=== PATIENT | female | born 1995 | race Caucasian/White ===

== ENCOUNTER → 2018-01-22 15:24 | Outpatient (CLI) | payer BC, SELFPAY ==
[2018-01-22 17:30] LABS: Chlamydia Trachomatis by PCR Negative (Negative); Neisserai gonorrhoeae by PCR Negative (Negative); Probe Check PASS; Sample Adequacy Control PASS; Specimen Processing Control PASS
[2018-01-29 18:29] LABS: HPV Reflexed? YES, CHARGE PATIENT
== END ==
PROVIDERS: Visit Provider Obstetrics & Gynecology
DX: Z12.4 Encounter for screening for malignant neoplasm of cervix (principal); Z11.3 Encounter for screening for infections with a predominantly sexual mode of transmission; Z32.01 Encounter for pregnancy test, result positive
CPT/HCPCS: 87491; 87591; 87624; 88175; G0145

== ENCOUNTER → 2018-02-05 14:28 | Outpatient (CLI) | payer BC, SELFPAY ==
[2018-02-05 15:07] LABS: Color, Urine Yellow (Yellow); Glucose, Dipstick Normal (Normal); Ketone-Dipstick Negative (Negative); Leukocyte Esterase-Dipstick Negative /ul (Negative); Nitrite-Dipstick Negative (Negative); Occult Blood-Urine Negative /ul (Negative); Protein-Dipstick Negative (Negative); Urine Bilirubin Dipstick Negative (Negative); Urine Clarity Clear (Clear); Urine Urobilinogen Normal (Normal)
[2018-02-05 15:15] LABS: Absolute Lymphocyte Count 2.03 X10^3/ul (0.83-4.51); Absolute Neutrophil Count 6.4 X10^3/uL (2.0-7.7); Basophil# 0.01 X10^3/uL; Basophil% 0.1 % (0-1); Eosinophil# 0.06 X10^3/uL; Eosinophils% 0.7 % (0-5); Hematocrit 42.9 % (37-47); Hemoglobin 14.6 g/dl (12.0-15.0); Lymphocyte # 2.03 X10^3/ul (4.0); Lymphocyte % 22.2 % (19-41); Mean Corpuscular Hgb 30.5 pg (27.0-32.0); Mean Corpuscular Volume 89.7 fL (81-99); Mean Platelet Vol. 10.9 fl (6.2-12.0); Monocyte# 0.62 X10^3/uL; Monocyte% 6.8 % (0-10); Neutrophil # 6.39 X10^3/uL (2.7-7.7); Platelet Count 239 K/mm3 (150-450); RBC Distribution Width CV 13.6 % (11.6-14.6); RBC Distribution Width SD 44.9 fl (35.1-43.9); Red Blood Count 4.78 M/mm3 (4.2-5.4); White Blood Count 9.1 K/mm3 (4.4-11.0)
[2018-02-05 15:17] LABS: POSITIVE COUNT NO; POSITIVE DIFFERENTIAL NO; POSITIVE MORPHOLOGY NO
[2018-02-05 15:21] LABS: Amphetamine Urine VISTA NEGATIVE (<1000 ng/mL); Barbiturate Urine VISTA NEGATIVE (< 200 ng/mL); Benzodiazepine Urine VISTA NEGATIVE (< 200 ng/mL); Cocaine Urine VISTA NEGATIVE (< 300 ng/mL); Ecstacy Urine VISTA NEGATIVE (< 500 ng/mL); Methadone Urine VISTA NEGATIVE (< 300 ng/mL); PCP Urine VISTA NEGATIVE (< 25 ng/mL); THC Urine VISTA NEGATIVE (< 50 ng/mL); Vista UDS pH Range 6
[2018-02-05 15:46] LABS: Thyroid Stim Hormone (TSH) 0.98 uIU/mL (0.358-3.74)
[2018-02-05 16:25] LABS: HIV - WCH Non-Reactive (Nonreactive); Rubella IgG 53.7 IU/mL
[2018-02-07 02:34] LABS: Prenatal RPR NONREACTIVE (NONREACTIVE)
[2018-02-10 12:52] LABS: HPV HC, High Risk Negative (Negative)
[2018-02-10 12:58] LABS: HEPATITIS B SURFACE AG Negative (Negative); Hep C Antibodies <0.1 s/co ratio (0.0-0.9); V-Zoster IgG (Immunity) 468 index (Immune >165)
== END ==
PROVIDERS: Visit Provider Obstetrics & Gynecology
DX: Z34.82 Encounter for supervision of other normal pregnancy, second trimester (principal); Z12.4 Encounter for screening for malignant neoplasm of cervix
CPT/HCPCS: 36415; 80307; 81002; 84443; 85025; 86703; 86762; 86787; 86803; 87340; 87624

== ENCOUNTER → 2018-05-13 16:55 | Outpatient (CLI) | payer BC, SELFPAY ==
[2018-05-13 17:30] LABS: Hematocrit 38.3 % (37-47); Hemoglobin 12.9 g/dl (12.0-15.0); Mean Corp Hgb Conc 33.7 g/gl (32-36); Mean Corpuscular Hgb 31.1 pg (27.0-32.0); Mean Corpuscular Volume 92.3 fL (81-99); Mean Platelet Vol. 11.2 fl (6.2-12.0); Platelet Count 222 K/mm3 (150-450); RBC Distribution Width CV 13.5 % (11.6-14.6); RBC Distribution Width SD 44.5 fl (35.1-43.9); Red Blood Count 4.15 M/mm3 (4.2-5.4); White Blood Count 12.4 K/mm3 (4.4-11.0)
[2018-05-13 17:34] LABS: Scan Indicated on CBC? Y/N NO
[2018-05-13 17:57] LABS: Glucose Challenge Gest 1H 50g 103 mg/dL (70-140)
== END ==
PROVIDERS: Visit Provider Obstetrics & Gynecology
DX: Z34.83 Encounter for supervision of other normal pregnancy, third trimester (principal)
CPT/HCPCS: 36415; 82950; 85027

== ENCOUNTER 2018-07-06 19:45 | Outpatient (CLI) | payer BC, SELFPAY ==
[2018-07-06 20:32] VITALS: BMI 38.5
[2018-07-06 20:46] LABS: Color, Urine Yellow (Yellow); Glucose, Dipstick Normal (Normal); Ketone-Dipstick Negative (Negative); Leukocyte Esterase-Dipstick Negative /ul (Negative); Nitrite-Dipstick Negative (Negative); Occult Blood-Urine Negative /ul (Negative); Protein-Dipstick 15 mg/dl (Negative); Urine Bilirubin Dipstick Negative (Negative); Urine Clarity Clear (Clear); Urine Urobilinogen 1 mg/dl (Normal)
[2018-07-06 21:07] LABS: Mucous, Urine 0 SEEN /hpf (<or=2+); Red Blood Cells-Urine 0 SEEN /hpf (0-5)
[2018-07-06 21:13] LABS: Color, Urine Yellow (Yellow); Glucose, Dipstick Normal (Normal); Ketone-Dipstick Negative (Negative); Leukocyte Esterase-Dipstick Negative /ul (Negative); Nitrite-Dipstick Negative (Negative); Occult Blood-Urine Negative /ul (Negative); Protein-Dipstick 15 mg/dl (Negative); Urine Bilirubin Dipstick Negative (Negative); Urine Clarity Clear (Clear); Urine Urobilinogen 1 mg/dl (Normal)
[2018-07-06 21:17] LABS: White Blood Cells 0-5 SEEN /hpf (0-5)
[2018-07-06 21:18] LABS: Bacteria RARE /hpf (None Seen); Squamous Epithelial Cells - UA 5-10 SEEN /hpf (5-10)
[2018-07-06 22:20] VITALS: RESP 18
--- NOTE | 2018-07-15 21:22 | OB.TRI.NOTE ---
History of Present Illness Date of Service: 07/06/18 Was patient seen by the physician?: No Reason For Visit: R/O LABOR Date of Service: 07/06/18 Final LOBITO: 08/05/18 Gestational age: 35 Weeks and 5 Days History of Present Illness: 22 yo presents at 35 5/7 wk with CC of cramping Possible labor. Prior 41 wk delivery. Allergies No Known Allergies Allergy (Verified 07/06/18 20:30) Physical Exam Vitals: Vital Signs Resp 18 07/06/18 22:20 NST - FHR Rate Baby A Baseline: 120-130s with accels to 160s Variability:: Moderate Accelerations:: 15 x 15 Decelerations:: None NST Reactive:: Yes, Appropriate for gestational age FHR Category:: Category I Uterine Activity:: no regular UCs noted. Impression/Plan 35 5/57 wk False labor. Home Comfort measures. Keep office appt as planned. Return to Labor and Delivery if inc s/sx of labor.
== END 2018-07-06 22:20 | disposition home or self-care (01) ==
LOC: WPOUT 20:24 → WP 20:26
PROVIDERS: Visit Provider Obstetrics & Gynecology
DX: O47.03 False labor before 37 completed weeks of gestation, third trimester (principal); Z3A.35 35 weeks gestation of pregnancy
CPT/HCPCS: 59025; 59050; 81001; 81002; 99218; G0378

== ENCOUNTER → 2018-07-08 13:30 | Outpatient (CLI) | payer BC, SELFPAY ==
[2018-07-08 17:14] LABS: Group B Strep DNA By PCR Negative (Negative); Internal Control PASS; Probe Check PASS; Specimen Processing Control PASS
== END ==
PROVIDERS: Visit Provider Obstetrics & Gynecology
DX: Z36.85 Encounter for antenatal screening for Streptococcus B (principal)
CPT/HCPCS: 87081; 87653

== ENCOUNTER 2018-07-24 05:40 | Outpatient (CLI) | payer BC, SELFPAY ==
[2018-07-24 06:36] VITALS: BMI 39.9
[2018-07-24] MEDS: Lactated Ringers 1,000 ML 125 ML IV (06:40)
[2018-07-24 07:07] LABS: Red Blood Cells-Urine 0 SEEN /hpf (0-5)
[2018-07-24] MEDS: Ondansetron 4 MG/2 ML Vial IV (07:08)
[2018-07-24] MEDS: Acetaminophen 500 MG Tablet 1000 MG PO (07:08)
[2018-07-24 07:21] LABS: Hematocrit 37.8 % (37-47); Hemoglobin 12.8 g/dl (12.0-15.0); International Normalized Ratio 0.9; Mean Corp Hgb Conc 33.9 g/gl (32-36); Mean Corpuscular Hgb 31.4 pg (27.0-32.0); Mean Corpuscular Volume 92.6 fL (81-99); Platelet Count 175 K/mm3 (150-450); Prothrombin Time (Protime)PT. 12.5 SECONDS (11.7-14.9); RBC Distribution Width CV 14.1 % (11.6-14.6); RBC Distribution Width SD 46.5 fl (35.1-43.9); Red Blood Count 4.08 M/mm3 (4.2-5.4); Scan Indicated on CBC? Y/N NO; White Blood Count 10.7 K/mm3 (4.4-11.0)
[2018-07-24 07:22] LABS: AST(SGOT) 15 U/L (15-37); Alanine Aminotransfer ALT/SGPT 16 U/L (13-56); Creatinine, Serum 0.66 mg/dL (0.55-1.02); EST Glomerular Filtration Rate 119 mL/min (>60); Est Glom Filt Rate - Afr Amer 144 mL/min (>60); Partial Thromboplast Time 27.6 Seconds (24.1-36.2); Uric Acid 6.3 mg/dL (2.6-6.0)
[2018-07-24 07:26] LABS: Color, Urine Yellow (Yellow); Glucose, Dipstick Normal (Normal); Ketone-Dipstick Negative (Negative); Leukocyte Esterase-Dipstick 25 /ul (Negative); Nitrite-Dipstick Negative (Negative); Occult Blood-Urine Negative /ul (Negative); Protein, Urine (Random) 23.9 mg/dL (<11.9); Protein-Dipstick 15 mg/dl (Negative); Protein:Creat Ratio 174 mg/g CRE (0-200); Specific Gravity, Urine 1.015 (1.002-1.030); Urine Bilirubin Dipstick Negative (Negative); Urine Clarity Sl. Cloudy (Clear); Urine Urobilinogen 1 mg/dl (Normal)
[2018-07-24 07:38] LABS: Bacteria 1+ /hpf (None Seen); Mucous, Urine 1+ /hpf (<or=2+); Squamous Epithelial Cells - UA 10-25 SEEN /hpf (5-10); White Blood Cells 0-5 SEEN /hpf (0-5)
--- NOTE | 2018-07-24 08:30 | DCINST_ITS ---
You will use the following diet at home:: No restrictions Your food should be the consistency of: Regular Discharge Activity: Return to Normal Activity, May Drive, May Shower, May Take a Tub Bath Return to work on:: 07/28/18 May shower in (days): 0 Call your doctor if your incision/area has: Sudden Increased Bleeding, Increased Pain/ Swelling Call your doctor if you observe: Fever of 101 or Higher, Inability to urinate, Inability to have a bowel movement, Using more than one pad per hour, Shortness of breath, Chest pain, Calf discomfort, Uncontrolled pain, - - worsening headache or visual changes Allergies/Adverse Reactions: Allergies No Known Allergies Allergy (Verified 07/06/18 20:30) Medications to take at Discharge Vits [Prenatabs FA] 1 tablet PO DAILY 07/06/18 Azithromycin 250 mg PO DAILY 5 Days tab 07/24/18 Guaifenesin 100 mg PO Q4H PRN PRN #200 ml 07/24/18 Pseudoephedrine [Sudafed] 60 mg PO Q8H PRN PRN #20 tab 07/24/18 The following prescriptions were given: Guaifenesin 100 mg PO Q4H PRN PRN #200 ml PRN Reason: Cough Pseudoephedrine [Sudafed] 60 mg PO Q8H PRN PRN #20 tab PRN Reason: Congestion Azithromycin 250 mg PO DAILY 5 Days tab Primary Care Physician: Care Physician,No Primary [Primary Care Provider] - Test Results: Test results from this visit will be discussed in further detail at your follow- up appointment, if applicable. Please Follow Up With: Solo Ovalles MD When: next saturday call for appt Proposed Discharge Date: 07/24/18
--- NOTE | 2018-07-24 08:30 | OB.TRI.NOTE ---
History of Present Illness Date of Service: 07/24/18 Was patient seen by the physician?: Yes Reason For Visit: R/O LABOR Date of Service: 07/24/18 Final LOBITO: 07/28/18 Final LOBITO Source: US <20 weeks Gestational age: 39 Weeks and 3 Days History of Present Illness: Reports some contractions but not strong. Has headache nasal congestion and cough. No signs of SROM or bleeding. Good movement. Allergies No Known Allergies Allergy (Verified 07/06/18 20:30) Laboratory Studies: Laboratory Tests 07/24/18 07/24/18 07/24/18 Range/Units 06:40 06:40 06:40 WBC 10.7 (4.4-11.0) K/mm3 RBC 4.08 L (4.2-5.4) M/mm3 Hgb 12.8 (12.0-15.0) g/dl Hct 37.8 (37-47) % MCV 92.6 (81-99) fL MCH 31.4 (27.0-32.0) pg MCHC 33.9 (32-36) g/gl RDW 14.1 (11.6-14.6) % RDW Differential 46.5 H (35.1-43.9) fl Plt Count 175 (150-450) K/mm3 MPV 13.0 H (6.2-12.0) fl PT 12.5 (11.7-14.9) SECONDS INR 0.9 APTT 27.6 (24.1-36.2) Seconds Creatinine 0.66 (0.55-1.02) mg/dL Estim Creat Clear Calc 110.60 ml/min Est GFR (MDRD) Af Amer 144 (>60) mL/min Est GFR (MDRD) Non-Af 119 (>60) mL/min Uric Acid 6.3 H (2.6-6.0) mg/dL AST 15 (15-37) U/L ALT 16 (13-56) U/L Urine Color (Yellow) Urine Clarity (Clear) Urine pH (5.0 - 8.0) Ur Specific [place] (1.002-1.030) Urine Protein (Negative) mg/dl Urine Glucose (UA) (Normal) mg/dl Urine Ketones (Negative) mg/dl Urine Occult Blood (Negative) /ul Urine Nitrite (Negative) Urine Bilirubin (Negative) mg/dL Urine Urobilinogen (Normal) mg/dl Ur Leukocyte Esterase (Negative) /ul Urine RBC (0-5) /hpf Urine WBC (0-5) /hpf Ur Squamous Epith Cells (5-10) /hpf Urine Bacteria (None Seen) /hpf Urine Mucus (<or=2+) /hpf U Random Total Protein (<11.9) mg/dL Urine Creatinine (NO RANGE EST.) mg/dL Protein/Creatinin Ratio (0-200) mg/g CRE 07/24/18 07/24/18 Range/Units 06:33 06:33 WBC (4.4-11.0) K/mm3 RBC (4.2-5.4) M/mm3 Hgb (12.0-15.0) g/dl Hct (37-47) % MCV (81-99) fL MCH (27.0-32.0) pg MCHC (32-36) g/gl RDW (11.6-14.6) % RDW Differential (35.1-43.9) fl Plt Count (150-450) K/mm3 MPV (6.2-12.0) fl PT (11.7-14.9) SECONDS INR APTT (24.1-36.2) Seconds Creatinine (0.55-1.02) mg/dL Estim Creat Clear Calc ml/min Est GFR (MDRD) Af Amer (>60) mL/min Est GFR (MDRD) Non-Af (>60) mL/min Uric Acid (2.6-6.0) mg/dL AST (15-37) U/L ALT (13-56) U/L Urine Color Yellow (Yellow) Urine Clarity Sl. Cloudy (Clear) Urine pH 7.0 (5.0 - 8.0) Ur Specific [place] 1.015 (1.002-1.030) Urine Protein 15 H (Negative) mg/dl Urine Glucose (UA) Normal (Normal) mg/dl Urine Ketones Negative (Negative) mg/dl Urine Occult Blood Negative (Negative) /ul Urine Nitrite Negative (Negative) Urine Bilirubin Negative (Negative) mg/dL Urine Urobilinogen 1 H (Normal) mg/dl Ur Leukocyte Esterase 25 H (Negative) /ul Urine RBC 0 SEEN (0-5) /hpf Urine WBC 0-5 SEEN (0-5) /hpf Ur Squamous Epith Cells 10-25 SEEN (5-10) /hpf Urine Bacteria 1+ (None Seen) /hpf Urine Mucus 1+ (<or=2+) /hpf U Random Total Protein 23.9 H (<11.9) mg/dL Urine Creatinine 137.00 (NO RANGE EST.) mg/dL Protein/Creatinin Ratio 174 (0-200) mg/g CRE Physical Exam General: Alert, Oriented x3, Cooperative, No apparent distress Cardiovascular: Regular rate, Regular Rhythm Lungs: Clear to auscultation, Normal air movement Abdomen: Soft, Non Tender, Non-Distended, Gravid, Appropriate for Gestational Age Neurological: Neuro grossly intact [employer] ARCHITECT: Normal external genitalia Estimated gestational size: Appropriate for gestational size Presentation: Cephalic Cervix Dilation (cm): 3 Station: -2 Effacement (%): 25 NST - FHR Rate Baby A Baseline: 120s Variability:: Moderate Accelerations:: 15 x 15 Decelerations:: None NST Reactive:: Yes, Appropriate for gestational age FHR Category:: Category I Uterine Activity:: irregular and rare Impression/Plan PIH labs only significant for elevated uric acid. BPs normal here. Headache frontal and likely a result of congestion. Has cough. Prescriptions given for cough suppresant and decongestant. Azithromycin as precaution against bronchitis. Warning given.
== END 2018-07-24 08:35 | disposition home or self-care (01) ==
LOC: WPOUT 05:54 → WP 05:55
PROVIDERS: Visit Provider Obstetrics & Gynecology
DX: O26.893 Other specified pregnancy related conditions, third trimester (principal); R51 Headache; R05 Cough; R09.81 Nasal congestion; Z3A.39 39 weeks gestation of pregnancy
CPT/HCPCS: 36415; 59025; 59050; 81001; 82565; 82570; 84156; 84450; 84460; 84550; 85027; 85610; 85730; 87086; 87088; 99218; J7120; G0378; J2405

== ENCOUNTER 2018-07-28 15:20 | Outpatient (CLI) | payer BC, SELFPAY ==
[2018-07-28 15:59] VITALS: BMI 40.0
[2018-07-28 16:21] LABS: ROM Internal Control Test YES-OK TO RESULT pt. (Internal QC); ROM Patient Test Negative (Negative)
--- NOTE | 2018-07-28 20:59 | OB.TRI.NOTE ---
History of Present Illness Date of Service: 07/28/18 Was patient seen by the physician?: No Reason For Visit: RULE OUT SROM Date of Service: 07/28/18 Final LOBTIO: 08/05/18 Final LOBITO Source: US <20 weeks Gestational age: 38 Weeks and 6 Days History of Present Illness: 38+ week intrauterine 2 para 1 presents with some leaking of fluid. Concerned about rupture of membranes. Minimal contractions have been noted. care remarkable for chronic hypertension on labetalol. Allergies No Known Allergies Allergy (Verified 07/28/18 15:59) Laboratory Studies: Laboratory Tests 07/28/18 Range/Units 15:40 Vag Amniotic Fld Detect Negative (Negative) NST - FHR Rate Baby A NST Reactive:: Yes FHR Category:: Category I Impression/Plan 38+ week intrauterine with possible spontaneous rupture of membranes and negative ROM test. Reactive nonstress test. Minimal contractions noted on monitor or felt by patient. Will release to home with routine instructions and follow-up. Blood pressures okay on labor and delivery this evening.
--- NOTE | 2018-07-28 21:02 | OB.TRI.HP_ITS ---
History of Present Illness Date of Service: 07/28/18 Was patient seen by the physician?: No Reason For Visit: RULE OUT SROM Date of Service: 07/28/18 Final LOBITO: 08/05/18 Final LOBITO Source: US <20 weeks Gestational age: 38 Weeks and 6 Days History of Present Illness: 38+ week intrauterine 2 para 1 presents with some leaking of fluid. Concerned about rupture of membranes. Minimal contractions have been noted. care remarkable for chronic hypertension on labetalol. Allergies No Known Allergies Allergy (Verified 07/28/18 15:59) Laboratory Studies: Laboratory Tests 07/28/18 Range/Units 15:40 Vag Amniotic Fld Detect Negative (Negative) NST - FHR Rate Baby A NST Reactive:: Yes FHR Category:: Category I Impression/Plan 38+ week intrauterine with possible spontaneous rupture of membranes and negative ROM test. Reactive nonstress test. Minimal contractions noted on monitor or felt by patient. Will release to home with routine instructions and follow-up. Blood pressures okay on labor and delivery this evening.
== END 2018-07-28 16:45 | disposition home or self-care (01) ==
LOC: WPOUT 15:44 → WP 15:45
PROVIDERS: Referring Provider Obstetrics & Gynecology; Visit Provider Obstetrics & Gynecology
DX: O16.3 Unspecified maternal hypertension, third trimester (principal); Z3A.38 38 weeks gestation of pregnancy
CPT/HCPCS: 59025; 59050; 84112; 99218; G0378

== ENCOUNTER → 2018-12-08 13:27 | Outpatient (CLI) | payer BC, MEDICAID, SELFPAY ==
[2018-12-08 18:33] LABS: Chlamydia Trachomatis by PCR POSITIVE (Negative); Neisserai gonorrhoeae by PCR Negative (Negative); Probe Check PASS; Sample Adequacy Control PASS; Specimen Processing Control PASS
[2018-12-11 13:30] LABS: HPV Reflexed? NOT INDICATED
== END ==
PROVIDERS: Visit Provider Obstetrics & Gynecology
DX: Z12.4 Encounter for screening for malignant neoplasm of cervix (principal); Z11.3 Encounter for screening for infections with a predominantly sexual mode of transmission
CPT/HCPCS: 87491; 87591; 88175; G0145

== ENCOUNTER → 2020-01-22 11:30 | Outpatient (CLI) | payer BC, SELFPAY ==
[2020-01-22 18:15] LABS: Neisserai gonorrhoeae by PCR Negative (Negative); Probe Check PASS
[2020-01-22 18:23] LABS: Chlamydia Trachomatis by PCR POSITIVE (Negative)
== END ==
PROVIDERS: Referring Provider Obstetrics & Gynecology; Visit Provider Obstetrics & Gynecology
DX: Z32.01 Encounter for pregnancy test, result positive (principal); Z11.3 Encounter for screening for infections with a predominantly sexual mode of transmission
CPT/HCPCS: 87491; 87591

== ENCOUNTER → 2020-02-22 13:56 | Outpatient (CLI) | payer BC, SELFPAY ==
[2020-02-22 16:08] LABS: Absolute Neutrophil Count 7.9 X10^3/uL (2.0-7.7); Basophil# 0.02 X10^3/uL; Basophil% 0.2 % (0-1); Eosinophil# 0.07 X10^3/uL; Eosinophils% 0.7 % (0-5); Hematocrit 40.7 % (37-47); Hemoglobin 13.7 g/dL (12.0-15.0); Lymphocyte % 15.5 % (19-41); Mean Corp Hgb Conc 33.7 g/dL (32-36); Mean Corpuscular Volume 92.1 fL (81-99); Mean Platelet Vol. 11.3 fl (6.2-12.0); Monocyte# 0.71 X10^3/uL; Monocyte% 6.9 % (0-10); NRBC Flagged by Analyzer 0 % (0-5); Neutrophil # 7.87 X10^3/uL (2.7-7.7); Neutrophil % 76.3 % (47-70); Platelet Count 234 K/mm3 (150-450); RBC Distribution Width CV 13.2 % (11.6-14.6); RBC Distribution Width SD 44.9 fl (35.1-43.9); Red Blood Count 4.42 M/mm3 (4.2-5.4); White Blood Count 10.3 K/mm3 (4.4-11.0)
[2020-02-22 16:10] LABS: Color, Urine Yellow (Yellow); Glucose, Dipstick Normal (Normal); Ketone-Dipstick 5 mg/dl (Negative); Leukocyte Esterase-Dipstick 100 /ul (Negative); Nitrite-Dipstick Negative (Negative); Occult Blood-Urine 10 /ul (Negative); Protein-Dipstick 15 mg/dl (Negative); Urine Bilirubin Dipstick Negative (Negative); Urine Clarity Cloudy (Clear); Urine Urobilinogen Normal (Normal)
[2020-02-22 16:29] LABS: Thyroid Stim Hormone (TSH) 0.51 uIU/mL (0.358-3.74)
[2020-02-22 17:08] LABS: Amphetamine Urine VISTA NEGATIVE (<1000 ng/mL); Barbiturate Urine VISTA NEGATIVE (< 200 ng/mL); Benzodiazepine Urine VISTA NEGATIVE (< 200 ng/mL); Cocaine Urine VISTA NEGATIVE (< 300 ng/mL); Ecstacy Urine VISTA NEGATIVE (< 500 ng/mL); Methadone Urine VISTA NEGATIVE (< 300 ng/mL); PCP Urine VISTA NEGATIVE (< 25 ng/mL); THC Urine VISTA NEGATIVE (< 50 ng/mL); Vista UDS pH Range 6
[2020-02-22 18:13] LABS: Chlamydia Trachomatis by PCR Negative (Negative); Neisserai gonorrhoeae by PCR Negative (Negative); Probe Check PASS; Sample Adequacy Control PASS; Specimen Processing Control PASS
[2020-02-23 10:17] LABS: HIV - WCH Non-Reactive (Nonreactive); Hepatitis B Surface Antigen Non-Reactive (Nonreactive); Hepatitis C Antibody Non-Reactive (Nonreactive); Rubella IgG 34.6 IU/mL
[2020-02-25 02:31] LABS: Prenatal RPR NONREACTIVE (NONREACTIVE)
== END ==
PROVIDERS: Referring Provider Obstetrics & Gynecology; Visit Provider Obstetrics & Gynecology
DX: Z34.82 Encounter for supervision of other normal pregnancy, second trimester (principal)
CPT/HCPCS: 36415; 80307; 81002; 84443; 85025; 86703; 86762; 86803; 87340; 87491; 87591

== ENCOUNTER → 2020-03-21 15:22 | Outpatient (CLI) | payer BC, SELFPAY | PROVIDERS: Visit Provider Obstetrics & Gynecology | DX: Z34.82 Encounter for supervision of other normal pregnancy, second trimester (principal); N39.0 Urinary tract infection, site not specified | CPT/HCPCS: 87086; 87088 ==

== ENCOUNTER → 2020-07-08 11:42 | Outpatient (CLI) | payer BC, SELFPAY ==
[2020-07-08 13:55] LABS: Hematocrit 40.4 % (37-47); Hemoglobin 13.6 g/dL (12.0-15.0); Mean Corp Hgb Conc 33.7 g/dL (32-36); Mean Corpuscular Hgb 32.1 pg (27.0-32.0); Mean Corpuscular Volume 95.3 fL (81-99); Platelet Count 200 K/mm3 (150-450); RBC Distribution Width CV 12.8 % (11.6-14.6); RBC Distribution Width SD 44.8 fl (35.1-43.9); Red Blood Count 4.24 M/mm3 (4.2-5.4); White Blood Count 9.1 K/mm3 (4.4-11.0)
[2020-07-08 14:13] LABS: Hemoglobin A1c 4.8 % (3.8-5.6)
[2020-07-08 14:44] LABS: HIV - WCH Non-Reactive (Nonreactive)
[2020-07-14 02:04] LABS: Rapid Plasmin Reagin (RPR) NONREACTIVE (NONREACTIVE)
== END ==
PROVIDERS: Visit Provider Obstetrics & Gynecology
DX: Z34.83 Encounter for supervision of other normal pregnancy, third trimester (principal)
CPT/HCPCS: 36415; 83036; 85027; 86592; 86703

== ENCOUNTER → 2020-08-01 | Outpatient (CLI) | payer BC, MEDICAID, SELFPAY ==
[2020-08-04 03:07] LABS: Chlamydia By Nucleic Acid AMP Negative (Negative)
[2020-08-04 08:28] LABS: Gonococcus By Nucleic Acid AMP Negative (Negative)
== END | disposition home or self-care (01) ==
LOC: LABSPEC 17:03
PROVIDERS: Visit Provider Student in an Organized Health Care Education/Training Program
DX: Z34.83 Encounter for supervision of other normal pregnancy, third trimester (principal); Z36.85 Encounter for antenatal screening for Streptococcus B
CPT/HCPCS: 87081; 87491; 87591

== ENCOUNTER 2020-08-04 11:15 | Outpatient (CLI) | payer BC, MEDICAID, SELFPAY ==
[2020-08-04 12:36] LABS: ROM Internal Control Test YES-OK TO RESULT pt. (Internal QC); ROM Patient Test Negative (Negative)
[2020-08-04 13:06] VITALS: BMI 40.4
[2020-08-04 13:14] VITALS: BP 119/75; PULSE 93; TEMP 36.6
[2020-08-04 14:36] VITALS: RESP 18
--- NOTE | 2020-08-06 08:41 | OB.TRI.NOTE ---
History of Present Illness Date of Service: 08/04/20 Was patient seen by the physician?: No Reason For Visit: R/O RUPTURE Date of Service: 08/04/20 Final LOBITO: 08/21/20 Final LOBITO Source: US <20 weeks Gestational age: 37 Weeks and 6 Days History of Present Illness: Leakage of fluid. Allergies No Known Allergies Allergy (Verified 08/04/20 13:26) Laboratory Studies: Laboratory Tests 08/04/20 Range/Units 12:00 Vag Amniotic Fld Detect Negative (Negative) Physical Exam Vitals: Vital Signs Temp Pulse Resp BP 97.9 F 93 18 119/75 08/04/20 13:14 08/04/20 13:14 08/04/20 14:36 08/04/20 13:14 NST - FHR Rate Baby A Baseline: 130 Variability:: Moderate Accelerations:: 15 x 15 Decelerations:: None NST Reactive:: Yes Uterine Activity:: Few contractions Impression/Plan Leakage of fluid, rule out rupture negative AmniSure. Reactive NST. DC home follow-up at scheduled appointments
== END 2020-08-04 14:35 | disposition home or self-care (01) ==
LOC: WPOUT 11:26 → WP 11:26
PROVIDERS: Referring Provider Obstetrics & Gynecology; Visit Provider Obstetrics & Gynecology
DX: O42.913 Preterm premature rupture of membranes, unspecified as to length of time between rupture and onset of labor, third trimester (principal); Z3A.37 37 weeks gestation of pregnancy
CPT/HCPCS: 59025; 59050; 84112; 99218; G0378

== ENCOUNTER 2021-03-16 07:15 | Day surgery (SDC) | payer BC, MEDICAID, SELFPAY ==
[2021-03-10 12:23] LABS: Hematocrit 40.5 % (37-47); Hemoglobin 13.6 g/dL (12.0-15.0); Mean Corp Hgb Conc 33.6 g/dL (32-36); Mean Corpuscular Hgb 30.7 pg (27.0-32.0); Mean Corpuscular Volume 91.4 fL (81-99); Mean Platelet Vol. 10.7 fl (6.2-12.0); Platelet Count 266 K/mm3 (150-450); RBC Distribution Width CV 12.4 % (11.6-14.6); RBC Distribution Width SD 41.2 fl (35.1-43.9); Red Blood Count 4.43 M/mm3 (4.2-5.4); White Blood Count 6.6 K/mm3 (4.4-11.0)
--- NOTE | 2021-03-16 07:12 | PCM.HP.BLA ---
History and Physical Date of Admission: 03/16/21 HISTORY OF PRESENT ILLNESS: Sahra Carrasco, a 25 year old female 3 0 0 0 3, presented for: bilateral laparoscopic salpingectomy. Patient desires permanent sterilization. Has completed childbearing. MEDICAL HISTORY: -Depression -Obesity ALLERGIES: No Known Allergies MEDICATIONS HISTORY: Current medications prescribed by our practice are: 1. One Daily 27 mg iron-800 mcg tablet, One tablet a day by mouth 2. Zoloft 100 mg tablet, one daily SURGICAL HISTORY: 1. none MENSTRUAL HISTORY: LMP Known?- DefiniteAmount/Duration - 7 days, LMP - 09/17/20, Age Onset Menarche - 14 PAST PREGNANCIES: Total Pregnancies - 3; Full Term Pregnancies - 3; Premature - 0; Abortions, Induced - 0; Abortions, Spontaneous - 0; Ectopics - 0; Multiple Births - 0; Living Children - 3 FAMILY HISTORY: Sister - Blood disorder; SOCIAL HISTORY: Alcohol Use - denies drinking Smoking - used to smoke but quit Drugs - denies REVIEW OF SYSTEMS: GENERAL - Denies fever, or chills SKIN - Denies skin changes EYES - Denies visual changes EARS - Denies difficulty hearing NOSE - Denies nasal congestion or bleeding MOUTH - Denies sore throat or difficulty swallowing NECK - Denies pain or swelling RESPIRATORY - Denies shortness of breath or wheezing CARDIOVASCULAR - Denies palpitations or chest pain GASTROINTESTINAL - Denies nausea, vomiting, diarrhea, constipation GENITOURINARY - Denies dysuria, frequency of urination, incontinence of urine MUSCULOSKELETAL - Denies joint or muscle pain NEUROLOGICAL - Denies localized numbness or weakness PSYCHIATRIC - Denies depression or anxiety ENDOCRINE - Denies heat or cold intolerance, weight loss or gain HEMATO-IMMUNOLOGIC - Denies excesive bleeding with cuts BP- 120/78 Sitting, Right arm, regular cuff Weight- 238.00 lbs Height- 62.50 inch BMI:42.93 CONSTITUTIONAL - NAD, well nourished, and well developed SKIN - No rash, lesions, or ulcers HEENT - Normocephalic, PERRLA, EOMI NECK - No nodes, no nuchal rigidity and thyroid normal size and texture LYMPH NODES - Palpation of lymph nodes in neck and groins within normal limits LUNGS - CTA x2 without wheezes, crackles or rales CARDIAC - Regular rate and rhythm without rubs, murmurs, or gallops ABDOMEN - Without hepatosplenomegaly, distention, masses, rebound, or guarding; normal bowel sounds; no hernias EXTREMITIES - No edema or calf tenderness NEUROLOGICAL - Cranial nerves II-XII grossly intact PSYCHIATRIC - A and O to time, place, person, mood and affect DETAILED PELVIC EXAM External Genital Vagina - non-tender without lesions Urethra/Urethral Meatus - non-tender Bladder - non-tender Vagina - vaginal ross are pink and moist without loss of rugae and no evidence of atropy Cervix - without cervical motion tenderness and has normal size and features without evident lesions Uterus - 5-6 cm in size, mobile and nontender Adnexa - clear without masess or tenderness ASSESSMENT/PLAN: Planned for laparoscopic bilateral salpingectomy. Desires permanent sterilization. R/B/A discussed. Risks include, but are not limited to: risk of bleeding to the point of transfusion, infection, injury to surrounding tissue (bowel/bladder), ICU admission, VTE, risk of regret which is highest in women in their early 20s. If patient were to become she is to notify provider immediately due to risk of ectopic . Patient is aware tubal ligation is permanent.She would need IVF if she desired in future.
[2021-03-16 07:43] VITALS: BP 125/71; PULSE 74; RESP 18; TEMP 36.7; O2SAT 99; BMI 41.6
[2021-03-16 08:00] LABS: Internal QC Validated? YES +Cl - CLEAR BKGD; Pregnancy, Urine Negative Negative
[2021-03-16] MEDS: Lactated Ringers 1,000 ML 100 ML IV ×2 (08:02→10:57)
--- NOTE | 2021-03-16 08:49 | PCM.DC ---
Discharge Instructions Diet Discharge Diet: No restrictions Activity Discharge Activity: Return to Normal Activity and May Shower May resume sexual activity in: 2 weeks Dressing / Incision Call your doctor if your incision/area has: Continuous Slow Oozing, Increased Redness and Foul Smelling Discharge Call your doctor if you observe: Fever of 101 or Higher, Inability to urinate, Shortness of breath, Swelling in the ankles, Chest pain and Calf discomfort Change Dressing in: do not change dressing Cleanse incision/area with: Soap & Water and Keep Dressing Clean & Dry Follow Up Care Please Follow Up With: Keturah Mujica When: 2 weeks Test Results: Test results from this visit will be discussed in further detail at your follow-up appointment, if applicable. Discharge Plan Admission Primary Reason for Your Visit: Tubal sterilization Attending Provider: Keturah Mujica Primary Care Provider: Care PhysicianCecy Primary Discharge Orders/Prescriptions Prescriptions: New oxycodone 5 mg tablet 5 mg PO Q6H PRN (Reason: pain (scale score 7-10)) 3 Days Qty: 10 RF: 0 Continued sertraline [Zoloft] 100 mg Tablet 100 mg PO DAILY RF: 0 Referrals / Follow Up: Care Physician,No Primary [Primary Care Provider] - Disposition Discharge Orders: Discharge Patient (Routine); Ordered 03/16/21 Ordered By: Dr. Keturah Mujica
--- NOTE | 2021-03-16 08:54 | PCM.OPRPT ---
Report of Operation Date of Procedure: 03/16/21 Pre-Operative Diagnosis: Desires Permanent Sterilization Post-Operative Diagnosis: Desires Permanent Sterilization Surgery/Procedure Performed:: Bilateral laparoscopic salpingectomy Description of Surgical Findings:: Normal-appearing external genitalia, minimal uterine descensus. Normal-appearing bilateral fallopian tubes and ovaries, uterus. Surgeon: Keturah Mujica carpet installer helper: Janice Hanks Type of Anesthesia: General Specimen's removed: Bilateral fallopian tubes Estimated Blood Loss (mL): 20cc Fluids Replaced: 1100cc Description of Procedure: Indications, risk/benefits: 25-year-old G3, P3 desires permanent sterilization. All risk, benefits, alternatives were discussed with the patient. Risks include but are not limited to: Risk of bleeding to the point of transfusion, infection, injury to surrounding tissue including bowel or bladder potentially requiring prolonged Aleman catheter use, VTE, ICU admission. Patient also aware of risk of regret with permanent sterilization, highest with women who are in their lower 20s. Patient aware and consented. Procedure: Patient taken to the operating room and placed under general anesthesia. Patient placed in the dorsal lithotomy position and prepped and draped in the usual sterile fashion. Aleman catheter placed in bladder. Weighted speculum placed in the posterior vagina and Casey retractor used to visualize the cervix, anterior lip of the cervix grasped with a single-tooth tenaculum. Cervix dilated and Sargis uterine manipulator placed. Gloves were changed and attention turned to the anterior abdominal wall. Infraumbilical incision made and 5 mm trocar placed under direct visualization, abdomen insufflated. Scope placed and noting subcutaneous emphysema, insufflation stopped. Trocar removed. Trocar replaced under direct visualization, with similar results. Longer 5 mm trocar was opened and placed through abdominal cavity under direct visualization. Large amount of what appeared to be filmy adhesions versus emphysema secondary to insufflation was noted, no window through was found. Able to visualize uterus moving with manipulation underneath omentum. Decision at that time to use open technique was made. Trocar removed. Skin incision extended. Subcutaneous tissue dissected away from the fascia. Difficult dissection due to large amount of subcutaneous tissue. Fascia grasped with two Tali clamps and incised between. Fascia tagged with suture. Posterior fascial sheath delineated and grasped with Tali clamps, incised with Eason scissors. Fascia tagged with suture. Trocar placed. Abdomen insufflated. Inspection of the abdominal cavity noted no adhesions. Prior abdominal entry and insufflation was subcutaneous based on no evidence of adhesions and a slightly distended gas-filled anterior abdominal wall. Right and left fallopian tubes identified from cornua to fimbriated end. Right fallopian tube grasped and coagulated and cut using LigaSure device. Fallopian tube removed through trocar. Left fallopian tube grasped at fimbriated end and coagulated and cut using LigaSure device. Fallopian tube removed through trocar. Bilateral mesosalpinx hemostatic. Abdomen desufflated, trochars removed. Posterior fascial sheath closed with suture. Anterior fascia closed with suture. Skin then closed with subcuticular stitch and skin glue. Aleman catheter and Sargis manipulator removed. At the end of the procedure all needle, lap, sponge counts correct x3. Urine output: 300 cc Complications None
--- NOTE | 2021-03-16 08:55 | FALS_PTH ---
PATIENT: IRAIDA KENNEY SUMMER LOC: [facility] – [place] U#:[id number] AGE/SX: 25/F ROOM: RE03/16/[address]: Dr. Keturah Mujica DO : 1995 BED: DIS: 03/16/2021 SPEC #: [id number] RECD: 03/16/21 11:33 STATUS: JAY DARBY #: [id number] JAYCOB: 03/16/21 08:[address]: Keturah Mujica DEPT: SURGICAL PATHOLOGY RECD BY: Marry Bernard ENTERED: 03/16/21 12:19 SP TYPE: FALL TUBES OTHR DR: No Primary Care Phys Tissues: Fallopian tube Procedures: Surgery Specimen Level II HEADER OPERATION: Laparoscopic salpingectomy PRE-OP DIAGNOSIS: Sterilization TISSUE SUBMITTED: Bilateral fallopian tubes MICROSCOPIC DIAGNOSIS Bilateral fallopian tubes, salpingectomy: Bilateral fallopian tubes, no pathologic diagnosis. NAN:brent 03/17/2021 MICROSCOPIC DESCRIPTION Slides are reviewed. GROSS DESCRIPTION Received in fixative is one container labeled with the patient's name and designated bilateral fallopian tubes. The specimen consists of bilateral fallopian tubes including fimbrial ends measuring 8 cm in length and 0.4 cm in diameter and 5.5 cm in length and 0.5 cm in diameter. The fallopian tubes are not identified as right or left. Sections reveal unremarkable cut surfaces. Residential Designer sections are submitted in two cassettes with each cassette containing one fallopian tube. / SJ:brent 03/16/21 TC:4 CPT: 82922 x2
[2021-03-16 10:48] VITALS: BP 125/71; BP 156/65; PULSE 89; RESP 16; TEMP 36.4; O2SAT 100
[2021-03-16 11:00] VITALS: BP 125/71; BP 131/59; PULSE 69; RESP 16; O2SAT 98
[2021-03-16 11:15] VITALS: BP 125/65; BP 125/71; PULSE 78; RESP 16; O2SAT 99
[2021-03-16 11:27] VITALS: BP 119/68; BP 125/71; PULSE 73; RESP 16; TEMP 36.4; O2SAT 94
[2021-03-16] MEDS: HYDROcodone Bitartrate/Apap 5/325 Tablet PO (11:57)
[2021-03-16 13:10] VITALS: BP 112/66; BP 125/71; PULSE 98; RESP 16; TEMP 36.4; O2SAT 98
== END 2021-03-16 14:00 ==
LOC: SDC 07:16 → AC 07:16
PROVIDERS: Anesthesiology; Referring Provider Student in an Organized Health Care Education/Training Program; Visit Provider Student in an Organized Health Care Education/Training Program
PROC: (CPT 58661; principal; 2021-03-16 08:40)
DX: Z30.2 Encounter for sterilization (principal); F32.9 Major depressive disorder, single episode, unspecified; Z87.891 Personal history of nicotine dependence; Z68.41 Body mass index [BMI] 40.0-44.9, adult; E66.9 Obesity, unspecified
CPT/HCPCS: 00840; 58661; 36415; 81025; 85027; 86850; 86900; 86901; 87426; 88302; C9803; J7120; J2405

== ENCOUNTER → 2021-03-22 16:19 | Outpatient (CLI) | payer BC, MEDICAID, SELFPAY ==
[2021-03-16 07:43] VITALS: BMI 41.6
[2021-03-22 16:52] LABS: Hematocrit 40.7 % (37-47); Hemoglobin 13.3 g/dL (12.0-15.0); Mean Corp Hgb Conc 32.7 g/dL (32-36); Mean Corpuscular Hgb 30.1 pg (27.0-32.0); Mean Corpuscular Volume 92.1 fL (81-99); Mean Platelet Vol. 10.9 fl (6.2-12.0); Platelet Count 276 K/mm3 (150-450); RBC Distribution Width SD 41.1 fl (35.1-43.9); Red Blood Count 4.42 M/mm3 (4.2-5.4)
[2021-03-22 17:28] LABS: Creatinine, Serum 0.85 mg/dL (0.55-1.02); EST Glomerular Filtration Rate 87 mL/min (>60); Est Glom Filt Rate - Afr Amer 105 mL/min (>60)
== END ==
PROVIDERS: Visit Provider Obstetrics & Gynecology
DX: R10.30 Lower abdominal pain, unspecified (principal)
CPT/HCPCS: 36415; 82565; 85027

== ENCOUNTER 2023-04-17 21:05 | Emergency (ER) | payer MEDICAID, SELFPAY ==
[2023-04-17 21:06] VITALS: BP 135/96; PULSE 77; RESP 18; TEMP 36.4; O2SAT 98; BMI 40.5
--- NOTE | 2023-04-17 21:11 | EX.ED.DYSGE1 ---
HPI History of Present Illness Chief Complaint: Lower Extremity Injury PFSH PFSH Medical History Alcohol use Anxiety Bruising Depression Easy bruising History of Clostridium difficile infection History of edema History of pre-eclampsia History of recent childbirth Leg cramps Migraine headache Non-smoker Home Medications sertraline 100 mg tablet (Zoloft) 100 mg PO DAILY mood 03/10/21 [History Last Taken Unknown] oxycodone 5 mg tablet 5 mg PO Q6H PRN pain (scale score 7-10) 3 days #10 tabs 03/16/21 [Rx Last Taken Unknown] Allergy/AdvReac Type Severity Reaction Status Date / Time No Known Allergies Allergy Verified 04/17/23 21:08 Social History Smoking Status: Never smoker EXAM Physical Exam Const Vital Signs: 04/17/23 21:06 Temperature 97.6 F L Temperature Source Temporal Pulse Rate 77 Respiratory Rate 18 Blood Pressure 135/96 H Blood Pressure Mean 109 Pulse Ox 98 Oxygen Delivery Method Room Air MDM MDM MDM Narrative Medical decision making narrative: HISTORY OF PRESENT ILLNESS: 27-year-old female here with left foot pain. She states REVIEW OF SYSTEMS: Pertinent positives: Left foot Pertinent negatives: [] PHYSICAL EXAM: Nursing triage notes reviewed, Vital signs reviewed Constitutional: please see mdm HENT: MMM Eyes: Pupils equal round and reactive to light, Extraocular muscles intact Neck: No stridor, no JVD, full neck ROM Lungs: Clear to auscultation, No wheezing or rales. No increased work of breathing, no conversational dyspnea, no accessory muscle use, no nasal flaring. No respiratory distress noted Heart: Regular rate and rhythm, No murmurs, No rubs and No gallops, 2+ distal pulses (radial, femoral, posterior tibial) in all extremities Abdomen: Soft, there is no tenderness, rigidity, rebound or guarding, no obvious peritoneal signs, no palpable pulsatile abdominal masses, no auscultated abdominal bruit : No CVAT Extremities: No edema Neuro: My back and her Skin: No rash or lesions noted MEDICAL DECISION MAKING: Chief Complaint: Left foot pain External records reviewed: No recent imaging of the involved extremity ALL IMAGES (IF OBTAINED) HAVE BEEN PERSONALLY REVIEWED AND INTERPRETED BY MYSELF. MDM Narrative: Patient was hemodynamically stable. Exam I considered the following differential diagnosis: Fracture, dislocation, contusion, gouty arthritis, septic arthritis I obtained an x-ray of the involved extremity The patient and/or family, caregivers express understanding. The patient and/or family, caregivers agrees with the plan. Total critical care time today provided was at least 0 [] minutes. This excludes separately billable procedures. Critical care time (if documented) is secondary to the patient having high probability of clinically significant/life threatening deterioration in the patient's condition which required my urgent intervention. Shared decision making: I will have a discussion with the patient and or visitors regarding risk/benefits of further testing or admission. They will be made aware of of the risk/benefits inherent in this decision they will be given the opportunity to voice understanding. Discharge Plan Triage Chief Complaint: Lower Extremity Injury ED Provider: Provider,Ed Physician Dx/Rx/DC Orders Prescriptions: No Action sertraline [Zoloft] 100 mg Tablet 100 mg PO DAILY oxycodone 5 mg tablet 5 mg PO Q6H PRN (Reason: pain (scale score 7-10)) 3 Days Qty: 10 0RF Primary Care Provider: Care Physician,No Primary Referrals: Care Physician,No Primary [Primary Care Provider] -
--- NOTE | 2023-04-17 21:29 | EDS_ITS ---
HPI History of Present Illness HPI Narrative: Right foot pain. Chief Complaint: Lower Extremity Injury Informant: patient Occured/Mechanism Mechanism/Context: No injury and No blunt trauma Onset/Context/Timing Onset: Days Context: Gradual Onset Timing: Continuous Quality of Pain: Dull and Aching Current Severity: Mild Maximum Severity: Mild Associated Symptoms Associated Symptoms: Negative for Parasthesia, Weakness or Loss of Funtion Narrative Narrative: 27-year-old female says she is having discomfort in her right foot just proximal to her third and fourth toes. Patient denies any known injury or trauma but says she is clumsy and often injured herself. Denies any prior injury or surgery to her right foot. No prior fracture. No fever or chills. Prior similar symptoms: No Recent Illness/Hospitalization: No PFSH PFSH Medical History Alcohol use Anxiety Bruising Depression Easy bruising History of Clostridium difficile infection History of edema History of pre-eclampsia History of recent childbirth Leg cramps Migraine headache Non-smoker Home Medications sertraline 100 mg tablet (Zoloft) 100 mg PO DAILY mood 03/10/21 [History Last Taken Unknown] oxycodone 5 mg tablet 5 mg PO Q6H PRN pain (scale score 7-10) 3 days #10 tabs 03/16/21 [Rx Last Taken Unknown] Allergy/AdvReac Type Severity Reaction Status Date / Time No Known Allergies Allergy Verified 04/17/23 21:08 Social History Smoking Status: Never smoker ROS ROS ED ROS Narrative Denies recent illness Review of Systems ROS Unobtainable: Denies due to encephalopathy Constitutional Constitutional ED: Denies fever(s) Eyes Eyes: Denies blurry vision ENT ENT ED: Denies ear pain Cardiovascular Cardiovascular: Denies chest pain Respiratory/Chest Respiratory/Chest: Denies cough or dyspnea Gastrointestinal Gastrointestinal: Denies abdominal pain Genitourinary Genitourinary ED: Denies dysuria or hematuria Musculoskeletal Musculoskeletal: Denies arthralgias Integumentary Denies abscess Neurologic Neurologic: Denies headache(s) Psychiatric Psychiatric: Denies anxiety or depression Endocrine Endocrinology: Denies polydipsia Hematologic/Lymphatic Hematologic/Lymphatic: Denies easy bleeding or easy bruising Allergic/Immunologic Allergic/Immunologic ED: Denies mouth swelling or tongue swelling EXAM Physical Exam Narrative Exam Narrative: 27-year-old female no acute distress. Vital signs stable afebrile. HEENT exam unremarkable. Lungs clear. Heart regular rhythm. Chest nontender. Abdomen soft nontender. Moving all 4 extremities. Neurovascular intact. Her left foot has mild tenderness and swelling just before the MCP joint of the third and fourth toes. No gross bony deformity. No signs of infection. No lymphangitic streaking. Foot is neurovascularly intact. The ankle and foot otherwise is nontender. Strong DP pulse. Normal cap refill. No puncture wound. Const Vital Signs: 04/17/23 21:06 Temperature 97.6 F L Temperature Source Temporal Pulse Rate 77 Respiratory Rate 18 Blood Pressure 135/96 H Blood Pressure Mean 109 Pulse Ox 98 Oxygen Delivery Method Room Air Positive well nourished and well developed; Negative for cachectic, contractures or unkempt General Appearance ED: well developed and NAD; Negative for unkempt, cachectic or contractures Nutritional Appearance: Negative for cachectic HEENT Reports moist mucous membranes normocephalic and atraumatic; Negative for trauma or tenderness Eyes PERRL General Eye ED: Negative for other Neck full ROM and supple Thyroid: Negative for tender Lymph Lymphatic: Negative for other Chest Wall inspection of chest normal and palpation of chest normal Chest: Negative for other Resp normal respiratory effort, no retractions and clear to auscultation bilaterally Effort and Inspection: Negative for pain with movement Auscultation: Negative for rales, rhonchi or wheezes Cardio regular rate, regular rhythm, S1 normal heart sound, S2 normal heart sound and no murmurs Rate: Negative for bradycardia or tachycardic Rhythm: Negative for abnormal rhythm Bruits: Negative for other GI non-tender, non-distended and no masses Inspection: Negative for abdominal distention Auscultation: normoactive bowel sounds Palpation: soft; Negative for tender or guarding Bladder / Kidney Exam: No other Back/Spine no CVA tenderness General Back: Negative for CVA tenderness Cervical Spine: Negative for cervical spine tenderness Thoracic Spine / Upper Back: Negative for thoracic spinal tenderness Lumbar Spine / Lower Back: Negative for lumbar spinal tenderness Extremity full ROM; Negative for normal to inspection Extremity Narrative: Left foot proximal to the third and fourth toes there is mild swelling. Tenderness. No infection. No streaking. No bony deformity. Neurovascular intact. Skin intact. No puncture wound. General Extremety ED: Yes edema; Negative for cyanosis General Extremity: edema; Negative for cyanosis Neuro oriented x3, CN's II-XII intact bilaterally and moves all extremities Sensorium / Orientation: alert, oriented to person, oriented to place and oriented to time; Negative for orientation impaired, confused or lethargic Motor Exam: strength 5/5 throughout Psych mental status grossly normal Appearance: Negative for unkempt Speech: No other Mood & Affect: Negative for anxious Skin no wounds Lesions: no lesions Rashes: no rashes Trauma: Negative for abrasion, laceration or puncture MDM MDM MDM Narrative Medical decision making narrative: 27-year-old with discomfort to her left foot worse with walking. May have had trauma and did not realize it. X-ray being obtained. This does not look like infection. Does not look like gout. Repeat exam unchanged at 9:38 PM. I went over the x-ray results with the patient. Treated as a contusion. Follow-up if not improving. Return if worse. History & Record Review Discussion w/independent historian: Patient Radiography Diagnostic Testing: Left foot x-ray, 3 views, interpreted by myself shows no acute abnormality. No fracture. No foreign body. No dislocation. Discharge Plan Triage Chief Complaint: Lower Extremity Injury ED Provider: Anirudh Hayes Dx/Rx/DC Orders Clinical Impression: Contusion of foot, left Instructions: ED Foot Contusion Prescriptions: No Action sertraline [Zoloft] 100 mg Tablet 100 mg PO DAILY oxycodone 5 mg tablet 5 mg PO Q6H PRN (Reason: pain (scale score 7-10)) 3 Days Qty: 10 0RF Primary Care Provider: Care Physician,No Primary Referrals: Dorian Posadas DPM [Med Staff - Active Staff] - 1 Week if not improving Care Physician,No Primary [Primary Care Provider] - Activity Restrictions/Additional Instructions: Ice and elevate to decrease pain and swelling. Motrin and Tylenol for pain and swelling. Follow-up with the corridor redevelopment manager: Dr. Posadas if not improving. Disposition Disposition: Home, Self Care
--- NOTE | 2023-04-17 21:30 | RAD_ITS ---
STUDY: X-RAY - LEFT FOOT CLINICAL: Female, 27 years old. trauma TECHNIQUE: 3 view(s) of the foot. COMPARISON: None. FINDINGS: Normal talus, calcaneus, and tarsal bones. Normal visualized subtalar, talonavicular, calcaneocuboid, tarsal and tarsometatarsal articulations. Normal metatarsi. Normal metatarsophalangeal joint of the great toe. Normal tibial and fibular sesamoid bones. Normal interphalangeal joint of the great toe. Normal phalanges of the great toe. Normal second through fifth metatarsophalangeal joints. Normal interphalangeal joints and phalanges of the lesser toes. The soft tissue structures are unremarkable. RAD/Foot min 3 Views IMPRESSION: Normal x-ray examination of the foot. Electronically Signed: Sin Willard MD at 21:42 EDT ,
== END 2023-04-17 21:49 | disposition home or self-care (01) ==
LOC: ED 21:43
PROVIDERS: Emergency Provider Emergency Medicine; Visit Provider Emergency Medicine
DX: S90.32XA Contusion of left foot, initial encounter (principal); F32.A Depression, unspecified; F41.9 Anxiety disorder, unspecified; Z79.899 Other long term (current) drug therapy
CPT/HCPCS: 73630; 99282

== ENCOUNTER 2023-05-07 17:08 | Emergency (ER) | payer MEDICAID, SELFPAY ==
[2023-05-07 17:12] VITALS: BP 132/83; PULSE 78; RESP 18; TEMP 36.4; O2SAT 100; BMI 39.6
--- NOTE | 2023-05-07 17:47 | CT_ITS ---
STUDY: CT BRAIN WITHOUT CONTRAST REASON FOR EXAM: Female, 27 years old. Pain nicolas L, including mastoid RADIATION DOSAGE (If Supplied By Facility): CTDIvol = ( 44.99 ) mGy, DLP = ( 796.11 ) mGycm TECHNIQUE: Transaxial CT imaging of the brain was performed without administration of intravenous contrast material. Individualized dose optimization techniques were used for this CT. COMPARISON: No relevant priors. FINDINGS: Normal soft tissue structures. Normal calvarium. Normal size ventricles and extra-axial spaces for the patient''s age. Normal white matter tracts of the cerebral hemispheres. Normal basal ganglia and thalami. Normal brainstem. Normal cerebellum. There is no intracranial hemorrhage. There are no findings of an acute ischemic infarction. Normal visualized paranasal sinuses. CT/Brain/Head without Contrast IMPRESSION: Normal unenhanced CT scan of the brain. Electronically Signed: Rick Marroquin MD at 18:44 EDT ,
--- NOTE | 2023-05-07 17:53 | EX.ED.DYSGE1 ---
HPI History of Present Illness Chief Complaint: Dizziness Informant: patient Narrative Narrative: For about the past week and almost 1/2, patient has been having intermittent left-sided headaches that she describes as a migraine but states she does not usually get headaches. She has some photophobia, nausea, vomiting. No focal neurologic symptoms, no neck stiffness, no fevers or chills. No recent illness. No nasal congestion, but she does feel like she has some sinus tenderness pointing to the ethmoids. She denies any earache or otorrhea or tinnitus. She thinks the dizziness started first, she has been having a sensation like she is off balance or spinning herself. It is intermittent, triggered with turning her head in different directions, worse to the right she thinks. No recent head injury. Healthy otherwise. PFSH PFSH Medical History Alcohol use Anxiety Bruising Depression Easy bruising History of Clostridium difficile infection History of edema History of pre-eclampsia History of recent childbirth Leg cramps Migraine headache Non-smoker Home Medications sertraline 100 mg tablet (Zoloft) 100 mg PO DAILY mood 03/10/21 [History Last Taken Unknown] oxycodone 5 mg tablet 5 mg PO Q6H PRN pain (scale score 7-10) 3 days #10 tabs 03/16/21 [Rx Last Taken Unknown] meclizine 25 mg tablet 25 mg PO Q8H PRN PRN Dizziness #20 tabs 05/07/23 [Rx Last Taken Unknown] ondansetron 4 mg disintegrating tablet 8 mg (2 x 4 mg) PO Q8H PRN PRN Nausea #12 tabs 05/07/23 [Rx Last Taken Unknown] Allergy/AdvReac Type Severity Reaction Status Date / Time No Known Allergies Allergy Verified 05/07/23 17:12 Social History Smoking Status: Never smoker ROS ROS ED Constitutional Constitutional ED: Denies chills or fever(s) Eyes Eyes: Reports blurry vision and photophobia; Denies diplopia ENT ENT ED: Reports as per HPI, disequillibrium, facial pain and vertigo; Denies ear pain, sore throat or tinnitus Cardiovascular Cardiovascular: Denies chest pain or palpitations Respiratory/Chest Respiratory/Chest: Denies cough or dyspnea Gastrointestinal Gastrointestinal: Reports nausea and vomiting; Denies abdominal pain or diarrhea Genitourinary Genitourinary ED: Denies dysuria or urinary frequency Musculoskeletal Musculoskeletal: Denies back pain, myalgias or neck pain Integumentary Denies abscess or rash Neurologic Neurologic: Reports headache(s); Denies paresthesias or weakness EXAM Physical Exam Const Vital Signs: 05/07/23 17:12 05/07/23 17:24 05/07/23 19:17 Temperature 97.6 F L Temperature Source Temporal Pulse Rate 78 73 Respiratory Rate 18 16 Respiratory Pattern Normal Blood Pressure 132/83 H 100/66 Blood Pressure Mean 99 77 Pulse Ox 100 98 Oxygen Delivery Method Room Air Room Air HEENT Reports normocephalic and moist mucous membranes HEENT Narrative: Right TM and EAC normal. Left EAC normal, the TM has slight erythematous injection but is not grossly red, is not bulging and there is no purulent effusion seen. Normal light reflex. The left mastoid process is tender but normal-appearing without any swelling, bulging, erythema. Mild tenderness in the ethmoids but no other sinus tenderness. No purulent nasal discharge or significant turbinate edema. atraumatic Eyes PERRL, EOMs intact bilaterally and conjunctivae normal Eyes Narrative: photophobia Neck no lymphadenopathy, supple and no meningeal signs Resp normal respiratory effort and clear to auscultation bilaterally GI non-tender and non-distended Palpation: soft Extremity normal to inspection and full ROM Neuro oriented x3 and CN's II-XII intact bilaterally Sensorium / Orientation: awake and alert Speech: speech normal Gait (Neuro): normal gait Motor Exam: strength 5/5 throughout Psych mental status grossly normal Skin Lesions: no lesions Rashes: no rashes MDM MDM MDM Narrative Medical decision making narrative: Given that this patient is having unusual symptoms for her, I did a CT scan, also to look for aeration of the left mastoid process. It is normal, I reviewed the images and the report which I agree with, and the patient's chemistries are normal showing no hypercalcemia, and her is negative. She was given Toradol, Reglan, and meclizine she feels much better on reevaluation, supportive care advised for now which hopefully is viral in etiology, close a patient follow-up advised. She does not have a PCP that she was referred to the next doctor on the unassigned list, Dr. Obregon. Lab Data Attestation: I reviewed the patient's lab results. Labs: Laboratory Results - last 24 hr 05/07/23 18:10 Sodium 137 Potassium 4.0 Chloride 107 Carbon Dioxide 25.0 Anion Gap 5 BUN 9 Creatinine 0.90 Estim Creat Clear Calc 78.36 Est GFR (MDRD) Af Amer 96 Est GFR (MDRD) Non-Af 80 BUN/Creatinine Ratio 10.0 Glucose 88 Calcium 8.9 Serum , Qual NEGATIVE Radiography Diagnostic Testing: Clinical Impression(s) from Imaging Studies Brain CT 05/07/23 17:47 IMPRESSION: Normal unenhanced CT scan of the brain. Electronically Signed: Rick Marroquin MD at 18:44 EDT , Discharge Plan Triage Chief Complaint: Dizziness ED Provider: Zechariah Perdomo Dx/Rx/DC Orders Clinical Impression: Headache, migraine, Peripheral vertigo Instructions: ED, Migraine (Classical), ED Vertigo, Unspecified Prescriptions: New meclizine [meclizine] 25 mg tablet 25 mg PO Q8H PRN PRN (Reason: Dizziness) Qty: 20 0RF ondansetron [ondansetron] 4 mg tablet,disintegrating 8 mg PO Q8H PRN PRN (Reason: Nausea) Qty: 12 0RF No Action sertraline [Zoloft] 100 mg Tablet 100 mg PO DAILY oxycodone 5 mg tablet 5 mg PO Q6H PRN (Reason: pain (scale score 7-10)) 3 Days Qty: 10 0RF Primary Care Provider: Care Physician,No Primary Referrals: Anthony Obregon MD [Med Staff - Electrical Prospecting Engineer] - Care Physician,No Primary [Primary Care Provider] - Disposition Disposition: Home, Self Care
[2023-05-07] MEDS: 0.9% Normal Saline 1,000 ML 999 ML IV (18:05)
[2023-05-07] MEDS: Meclizine HCl 25 MG Tablet PO (18:05)
[2023-05-07] MEDS: Metoclopramide 10 MG/2 ML Vial 5 MG IV (18:05)
[2023-05-07] MEDS: Ketorolac 30 MG/ML Syringe IV (18:05)
[2023-05-07 18:41] LABS: Anion Gap 5 (5-15); BUN 9 mg/dL (7-18); Calcium,Total 8.9 mg/dL (8.5-10.1); Chloride 107 mmol/L (98-107); EST Glomerular Filtration Rate 80 mL/min (>60); Est Glom Filt Rate - Afr Amer 96 mL/min (>60); Estimated Creatinine Clearance 78.36 ml/min; Glucose 88 mg/dL (74-106); Sodium Level 137 mmol/L (136-145)
[2023-05-07 18:53] LABS: Internal QC Validated? YES +Cl - CLEAR BKGD; Pregnancy, Serum, hCG Quali. NEGATIVE Negative
[2023-05-07 19:17] VITALS: BP 100/66; PULSE 73; RESP 16; O2SAT 98
--- NOTE | 2023-05-07 19:54 | CM.ED ---
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 Patient lying on hospital bed and agreeable to speak with SW. SW inquired about patient's insurance and current PCP. Patient verified insurance and reports no current PCP. SW provided patient with a list of local PCPs in network with patient's insurance and accepting new patients. Patient was receptive towards list and voiced no other needs. SW remains available if needs arise. Nadeen Santamaria MSW, DB
== END 2023-05-07 20:29 | disposition home or self-care (01) ==
PROVIDERS: Emergency Provider Emergency Medicine; Visit Provider Emergency Medicine
DX: G43.909 Migraine, unspecified, not intractable, without status migrainosus (principal); H81.399 Other peripheral vertigo, unspecified ear
CPT/HCPCS: 70450; 80048; 84703; 96361; 96374; 96375; 99283; J7030

== ENCOUNTER 2023-05-08 22:15 | Emergency (ER) | payer MEDICAID, SELFPAY ==
[2023-05-08 22:21] VITALS: BP 153/134; RESP 16; TEMP 37.3; BMI 40.6
--- NOTE | 2023-05-08 22:37 | EDS_ITS ---
HPI HPI - Psych History of Present Illness Chief Complaint: Suicidal Detail of Chief Complaint: Depressed and attempted overdose tonight. Informant: patient Onset/Context/Timing Onset: Today and Hours Context: Sudden Onset Conflict: Family, Work and Financial Timing: Continuous Current Severity: Moderate Maximum Severity: Moderate Associated Symptoms Associated Symptoms - Psych: Positive for Depressed and Suicidal Thoughts Specific plan (suicidal thought): Attempted overdose tonight. Narrative Narrative: 27-year-old female treated for depression. Said that she has been at confluence of things including work, social situation and finances. Single mother with 3 children. Tonight she got to the point that she attempted overdosing on Celexa she thinks she took around 20 and meclizine about 5 the knees were about an hour ago. She notified the father of her children and he contacted police. Prior similar symptoms: No Recent Illness/Hospitalization: No PFSH PFSH Medical History Alcohol use Anxiety Bruising Depression Easy bruising History of Clostridium difficile infection History of edema History of pre-eclampsia History of recent childbirth Leg cramps Migraine headache Non-smoker Home Medications meclizine 25 mg tablet 25 mg PO Q8H PRN PRN Dizziness #20 tabs 05/07/23 [Rx Last Taken Unknown] citalopram 20 mg tablet 20 mg PO DAILY 05/08/23 [History Last Taken Unknown] Allergy/AdvReac Type Severity Reaction Status Date / Time No Known Allergies Allergy Verified 05/07/23 17:12 Surgical History H/O tubal ligation Social History household members: children Smoking Status: Never smoker ROS ROS ED ROS Narrative Denies recent illness or hospitalization. Review of Systems ROS Unobtainable: Denies due to encephalopathy Constitutional Constitutional ED: Denies chills or fever(s) Eyes Eyes: Denies blurry vision ENT ENT ED: Denies ear pain Cardiovascular Cardiovascular: Denies chest pain Respiratory/Chest Respiratory/Chest: Denies cough Gastrointestinal Gastrointestinal: Denies abdominal pain Genitourinary Genitourinary ED: Denies dysuria Musculoskeletal Musculoskeletal: Denies arthralgias Integumentary Denies abscess Neurologic Neurologic: Reports headache(s) Psychiatric Psychiatric: Reports anxiety and depression Endocrine Endocrinology: Denies polydipsia Hematologic/Lymphatic Hematologic/Lymphatic: Denies easy bleeding Allergic/Immunologic Allergic/Immunologic ED: Denies mouth swelling EXAM Physical Exam Narrative Exam Narrative: Well-appearing young female. Vital signs are stable and afebrile. H EENT exam unremarkable. Neck nontender. Lungs clear to auscultation bilaterally. Heart regular rhythm no murmur. Chest with tender. Abdomen soft nontender. Moving all 4 extremities. No trauma or lacerations. No track smallwood. Nontender. Back nontender. Neurologically she is awake and alert with no focal motor deficits. Const Vital Signs: 05/08/23 22:21 05/08/23 23:32 05/09/23 05:21 Temperature 99.1 F Temperature Source Oral Pulse Rate 85 76 Respiratory Rate 16 17 17 Blood Pressure 153/134 H 140/75 H Blood Pressure Mean 140 96 Pulse Ox 100 100 Oxygen Delivery Method Room Air Positive well nourished and well developed; Negative for cachectic, contractures or unkempt General Appearance ED: well developed and NAD; Negative for unkempt, cachectic, contractures or pallor Nutritional Appearance: Negative for cachectic HEENT Reports moist mucous membranes normocephalic and atraumatic; Negative for trauma or tenderness Eyes PERRL and EOMs intact bilaterally General Eye ED: Negative for pale conjunctiva, scleral icterus or other Neck no lymphadenopathy, supple and no JVD General: Negative for tenderness Resp normal respiratory effort and clear to auscultation bilaterally Effort and Inspection: Negative for retractions Auscultation: Negative for rales, rhonchi or wheezes Cardio S1 normal heart sound, S2 normal heart sound and no murmurs Palpation: Negative for other Rate: regular rate Rhythm: regular rhythm GI non-tender, non-distended and no masses Inspection: Negative for abdominal distention Auscultation: normoactive bowel sounds Palpation: soft; Negative for tender, guarding or mass Back/Spine no CVA tenderness General Back: Negative for CVA tenderness Cervical Spine: Negative for cervical spine tenderness Thoracic Spine / Upper Back: Negative for thoracic spinal tenderness Lumbar Spine / Lower Back: Negative for lumbar spinal tenderness Coccyx: Negative for other Extremity normal to inspection General Extremety ED: Negative for edema or tenderness General Extremity: Negative for edema Neuro oriented x3, CN's II-XII intact bilaterally and no sensory deficits noted Sensorium / Orientation: alert, oriented to person, oriented to place and oriented to time; Negative for orientation impaired, confused, lethargic or stuporous Motor Exam: strength 5/5 throughout Psych mental status grossly normal, thought process normal, cooperative, affect normal, speech normal, activity/motor behavior normal and denies hallucinations; Negative for denies suicidal ideation Appearance: grossly normal, appropriate and well kempt; Negative for unkempt Attitude: calm and engaged Activity / Motor Behavior: appropriate eye contact Speech: normal speech Mood & Affect: depressed Thought Process: normal thought process Thought Content: suicidality Attention / Concentration: attention grossly intact Memory / Cognition: memory grossly intact Insight: fair Judgement: judgement good Skin General Skin Exam: Negative for jaundice or pallor Lesions: no lesions Rashes: no rashes Trauma: Negative for abrasion or laceration Wounds: Negative for amputation MDM MDM MDM Narrative Medical decision making narrative: 27-year-old female history of depression tonight trying to overdose on Celexa and meclizine about an hour ago. She will go through a ED mental health evaluation including labs. Medically she is cleared at this time. She will be a crisis evaluation and most likely a placement. Repeat exam patient doing well at 11:44 AM. Awaiting crisis evaluation. History & Record Review Discussion w/independent historian: Patient Lab Data Attestation: I reviewed the patient's lab results. Lab results narrative: CBC unremarkable. White count of 5. H&H 14 and 43. Platelets 287. Electrolytes unremarkable gap of 5. Normal BUN and creatinine is 0.9. Glucose 97. Talk screen negative. Tylenol level negative. Alcohol negative. Labs: Laboratory Results - last 24 hr 05/08/23 22:00 WBC 5.9 RBC 4.53 Hgb 14.3 Hct 43.2 MCV 95.4 MCH 31.6 MCHC 33.1 RDW Std Deviation 43.2 RDW Coeff of Vickie 12.4 Plt Count 287 MPV 10.5 Immature Gran % (Auto) 0.500 Neut % (Auto) 66.2 Lymph % (Auto) 21.3 [place] % (Auto) 10.8 H Eos % (Auto) 0.7 Baso % (Auto) 0.5 Absolute Neuts (auto) 3.9 Absolute Lymphs (auto) 1.25 Nucleated RBC % 0 Sodium 138 Potassium 3.6 Chloride 105 Carbon Dioxide 28.0 Anion Gap 5 BUN 8 Creatinine 0.92 Estim Creat Clear Calc 76.65 Est GFR (MDRD) Af Amer 94 Est GFR (MDRD) Non-Af 78 BUN/Creatinine Ratio 8.7 L Glucose 97 Calcium 9.2 Serum , Qual NEGATIVE Urine Opiates Screen NEGATIVE Urine Methadone Screen NEGATIVE Acetaminophen < 2.0 L Ur Barbiturates Screen NEGATIVE Ur Phencyclidine Scrn NEGATIVE Ur Amphetamines Screen NEGATIVE MDMA (Ecstasy) Screen NEGATIVE U Benzodiazepines Scrn NEGATIVE Urine Cocaine Screen NEGATIVE U Cannabinoids Screen NEGATIVE Ur Drug Screen Comment Ethyl Alcohol < 3.0 Rhythm Strip Rhythm Strip: Sinus Rhythm Rate: 71 Ectopy: None EKG Initial EKG: Attestation: I personally reviewed and interpreted this EKG as follows: Interpretation: Sinus Rhythm and No Acute Injury Pattern Comments: Per request of the receiving psychiatric facility an EKG was obtained. Showed a normal sinus rhythm rate of 71 no acute signs of [place] nor ischemia nor dysrhythmia. Discharge Plan Triage Chief Complaint: Suicidal ED Provider: Anirudh Hayes Dx/Rx/DC Orders Clinical Impression: Depression with suicidal ideation, Depression, Overdose Prescriptions: No Action citalopram 20 mg tablet 20 mg PO DAILY Patient Comments: TAKE 1 TABLET BY MOUTH ONCE DAILY meclizine [meclizine] 25 mg tablet 25 mg PO Q8H PRN PRN (Reason: Dizziness) Qty: 20 0RF Primary Care Provider: Care Physician,No Primary Referrals: Care Physician,No Primary [Primary Care Provider] - Disposition Disposition: Psychiatric Hospital or Unit Discharge Location: [facility] Discharge Date/Time: 05/09/23 03:40
[2023-05-08 22:55] LABS: Absolute Lymphocyte Count 1.25 X10^3/uL (0.83-4.51); Absolute Neutrophil Count 3.9 X10^3/uL (2.0-7.7); Basophil# 0.03 X10^3/uL; Basophil% 0.5 % (0-1); Eosinophil# 0.04 X10^3/uL; Eosinophils% 0.7 % (0-5); Hematocrit 43.2 % (37-47); Hemoglobin 14.3 g/dL (12.0-15.0); Lymphocyte # 1.25 X10^3/ul (0.83-4.51); Lymphocyte % 21.3 % (19-41); Mean Corp Hgb Conc 33.1 g/dL (32-36); Mean Corpuscular Hgb 31.6 pg (27.0-32.0); Mean Corpuscular Volume 95.4 fL (81-99); Mean Platelet Vol. 10.5 fl (6.2-12.0); Monocyte# 0.63 X10^3/uL; Monocyte% 10.8 % (0-10); NRBC Flagged by Analyzer 0 % (0-5); Neutrophil # 3.88 X10^3/uL (2.7-7.7); Neutrophil % 66.2 % (47-70); Platelet Count 287 K/mm3 (150-450); RBC Distribution Width CV 12.4 % (11.6-14.6); RBC Distribution Width SD 43.2 fl (35.1-43.9); Red Blood Count 4.53 M/mm3 (4.2-5.4); White Blood Count 5.9 K/mm3 (4.4-11.0)
[2023-05-08 23:12] LABS: Internal QC Validated? YES +Cl - CLEAR BKGD; Pregnancy, Serum, hCG Quali. NEGATIVE Negative
[2023-05-08 23:14] LABS: Amphetamine Urine VISTA NEGATIVE (<1000 ng/mL); Anion Gap 5 (5-15); BUN 8 mg/dL (7-18); BUN/Creat Ratio 8.7 RATIO (10-20); Barbiturate Urine VISTA NEGATIVE (< 200 ng/mL); Benzodiazepine Urine VISTA NEGATIVE (< 200 ng/mL); Calcium,Total 9.2 mg/dL (8.5-10.1); Chloride 105 mmol/L (98-107); Cocaine Urine VISTA NEGATIVE (< 300 ng/mL); Creatinine, Serum 0.92 mg/dL (0.55-1.02); EST Glomerular Filtration Rate 78 mL/min (>60); Ecstacy Urine VISTA NEGATIVE (< 500 ng/mL); Est Glom Filt Rate - Afr Amer 94 mL/min (>60); Estimated Creatinine Clearance 76.65 ml/min; Glucose 97 mg/dL (74-106); Methadone Urine VISTA NEGATIVE (< 300 ng/mL); PCP Urine VISTA NEGATIVE (< 25 ng/mL); Potassium 3.6 mmol/L (3.5-5.1); Sodium Level 138 mmol/L (136-145); THC Urine VISTA NEGATIVE (< 50 ng/mL); Vista UDS pH Range 5
[2023-05-08 23:18] LABS: Acetaminophen (Tylenol) Level < 2.0 ug/mL (10.0-30.0); Alcohol, Blood (Medical)-Serum < 3.0 mg/dL
[2023-05-08 23:32] VITALS: PULSE 85; RESP 17; O2SAT 100
[2023-05-09 05:21] VITALS: BP 140/75; PULSE 76; RESP 17; O2SAT 100
--- NOTE | 2023-05-09 05:23 | ED.RN ---
See downtime charting for RN notes.
--- NOTE | 2023-05-09 05:30 | EKG12_ITS ---
Test Reason : [facility] [place] Blood Pressure : / mmHG Vent. Rate : 071 BPM Atrial Rate : 071 BPM P-R Int : 162 ms QRS Dur : 076 ms QT Int : 416 ms P-R-T Axes : 002 060 022 degrees QTc Int : 452 ms Normal sinus rhythm with sinus arrhythmia Normal ECG Confirmed by ANTONIO MORALES, RUSS ([id number]), department editor JOSH VU ([id number]) on 05/09/2023 1:23:45 PM Referred By: Freddy Confirmed By:RUSS ALVAREZ MD
== END 2023-05-09 03:40 ==
PROVIDERS: Emergency Provider Emergency Medicine; Visit Provider Emergency Medicine
DX: T43.222A Poisoning by selective serotonin reuptake inhibitors, intentional self-harm, initial encounter (principal); R45.851 Suicidal ideations; F32.A Depression, unspecified
CPT/HCPCS: 80048; 80307; 80329; 82077; 84703; 85025; 87428; 93005; 99285; A4216; G0480

== ENCOUNTER 2023-06-09 19:15 | Emergency (ER) | payer MEDICAID, SELFPAY ==
[2023-06-09 19:17] VITALS: BP 153/85; PULSE 93; RESP 16; TEMP 36.1; O2SAT 99; BMI 38.9
--- NOTE | 2023-06-09 19:42 | EX.ED.VIS.PS ---
HPI <Dr. Mainor Mari MD - Last Filed: 06/11/23 08:27> HPI - Psych History of Present Illness Chief Complaint: Suicidal Detail of Chief Complaint: Depression with suicidal thoughts Informant: patient Onset/Context/Timing Onset: Weeks Context: Sudden Onset Timing: Continuous and Waxes and wanes Current Severity: Mild Maximum Severity: Severe Worsened by: Situational factors and Alcohol intoxication Relieved by: Nothing Associated Symptoms Associated Symptoms - Psych: Positive for Depressed, Change in Eating, Change in sleeping, Decreased Interest, Suicidal Thoughts and - (Patient feels overwhelmed.); Negative for Decreased Concentration, Hopelessness, Easily distracted, Grandiosity, Flight of Ideas, Increased activity, Pressured Speech, Agitated, Angry, Hostile, Threatening, Confusion, Paranoia, Visual Hallucinations or Auditory Hallucinations Specific plan (suicidal thought): Overdose. Patient did overdose 1 month ago. Narrative Narrative: Patient is 27-year-old with history of depression recent admission for suicidal attempt who presents because she feels overwhelmed, depressed and having increased suicidal thoughts. Patient has 3 children. 6-year-old, 4-year-old and 2-year-old. She only interacts with the father of the 2-year-old. The father of the 6 and 4-year-old have an interaction with the children or her. Her mother presently has custody of her children. Patient admits to doing cocaine and mushrooms this weekend. Patient states she does not do drugs because they were available and her friends offered. Patient states she is having no difficulty at work with coworkers or patrons. Patient does admit to smoking. She does drink on weekends. She would not quantitate how much she consumes on the weekend. Prior similar symptoms: Yes Recent Illness/Hospitalization: Yes PFSH <Dr. Mainor Mari MD - Last Filed: 06/11/23 08:27> PFS Medical History Alcohol use Anxiety Bruising Depression Easy bruising History of Clostridium difficile infection History of edema History of pre-eclampsia History of recent childbirth Leg cramps Migraine headache Non-smoker Home Medications meclizine 25 mg tablet 25 mg PO Q8H PRN PRN Dizziness #20 tabs 05/07/23 [Rx Last Taken Unknown] citalopram 20 mg tablet 20 mg PO DAILY 05/08/23 [History Last Taken Unknown] Allergy/AdvReac Type Severity Reaction Status Date / Time No Known Allergies Allergy Verified 05/07/23 17:12 Surgical History H/O tubal ligation Social History household members: children Smoking Status: Never smoker ROS <Dr. Mainor Mari MD - Last Filed: 06/11/23 08:27> ROS ED Constitutional Constitutional ED: Denies chills, fever(s), subjective, sweats or weight loss Eyes Eyes: Denies blurry vision, change in vision or diplopia ENT ENT ED: Denies ear pain or rhinorrhea Cardiovascular Cardiovascular: Denies chest pain, palpitations or racing heartbeat Respiratory/Chest Respiratory/Chest: Denies cough, dyspnea or dyspnea on exertion Gastrointestinal Gastrointestinal: Denies abdominal pain, nausea or vomiting Genitourinary Genitourinary ED: Denies dysuria, hematuria or urinary frequency Musculoskeletal Musculoskeletal: Denies arthralgias, back pain, myalgias or neck pain Integumentary Denies abscess or rash Neurologic Neurologic: Denies headache(s), paresthesias or weakness Psychiatric Psychiatric: Reports anxiety, depression, suicidal ideation and suicidal thoughts Endocrine Endocrinology: Denies polydipsia, polyphagia or polyuria Allergic/Immunologic Allergic/Immunologic ED: Denies mouth swelling, tongue swelling or urticaria EXAM <Dr. Mainor Mari MD - Last Filed: 06/11/23 08:27> Physical Exam Const Vital Signs: 06/10/23 08:48 06/10/23 09:45 06/10/23 09:54 Pulse Rate 74 69 Respiratory Rate 14 14 14 Blood Pressure 116/63 114/70 Blood Pressure Mean 80 84 Pulse Ox 99 98 Oxygen Delivery Method Room Air Positive well nourished, well developed and obese Constitutional Narrative: Affect is flat mood is depressed General Appearance ED: well developed Nutritional Appearance: obese HEENT Reports TM's clear and moist mucous membranes normocephalic and atraumatic Tympanic Membrane ED: Yes TM's clear Eyes PERRL and EOMs intact bilaterally General Eye ED: Yes pale conjunctiva and scleral icterus Neck no lymphadenopathy and supple Resp normal respiratory effort and clear to auscultation bilaterally Cardio S1 normal heart sound, S2 normal heart sound and no murmurs Rate: regular rate Rhythm: regular rhythm GI non-tender, non-distended and no masses Inspection: abdominal distention Palpation: soft Back/Spine no CVA tenderness Cervical Spine: Negative for cervical spine tenderness Thoracic Spine / Upper Back: Negative for thoracic spinal tenderness Lumbar Spine / Lower Back: Negative for lumbar spinal tenderness Extremity Extremity Narrative: Faint scars noted volar surface of right forearm and left forearm due to prior self-inflicted injury. Neuro oriented x3, CN's II-XII intact bilaterally, no sensory deficits noted and deep tendon reflexes 2+ bilaterally [place] Coma Scale: document GCS findings Spontaneous Obeys Commands Oriented 15 Sensorium / Orientation: alert Motor Exam: strength 5/5 throughout Psych Appearance: grossly normal Attitude: calm and evasive Activity / Motor Behavior: appropriate eye contact and psychomotor slowing Speech: slow and soft Mood & Affect: sad, tearful and flat affect Thought Process: normal thought process Thought Content: suicidality Attention / Concentration: attention grossly intact Memory / Cognition: memory grossly intact Insight: poor Judgement: poor <Dr. Adrián Seymour DO - Last Filed: 06/10/23 06:56> Physical Exam Const Vital Signs: 06/10/23 08:48 06/10/23 09:45 06/10/23 09:54 Pulse Rate 74 69 Respiratory Rate 14 14 14 Blood Pressure 116/63 114/70 Blood Pressure Mean 80 84 Pulse Ox 99 98 Oxygen Delivery Method Room Air Neuro María Coma Scale: document GCS findings 15 MDM <Dr. Mainor Mari MD - Last Filed: 06/11/23 08:27> MDM MDM Narrative Medical decision making narrative: Patient is depressed with suicidal thoughts and ideation. She has a plan. She will need a sitter. Work-up was undertaken for medical clearance. Lab Data Attestation: I reviewed the patient's lab results. Lab results narrative: CBC is remarkable. Basic metabolic panel is unremarkable. Glucose is slightly evaded 116 with a normal CO2 and anion gap. test is negative. UA is negative. Talk screen is positive for cocaine which she admitted using this past weekend. Alcohol was negative. Labs: Laboratory Results - last 24 hr 06/09/23 06/09/23 19:50 19:56 WBC 6.6 RBC 4.34 Hgb 13.4 Hct 40.8 MCV 94.0 MCH 30.9 MCHC 32.8 RDW Std Deviation 44.2 H RDW Coeff of Vickie 12.7 Plt Count 263 MPV 10.0 Immature Gran % (Auto) 0.300 Neut % (Auto) 62.6 Lymph % (Auto) 26.3 [place] % (Auto) 8.8 Eos % (Auto) 1.7 Baso % (Auto) 0.3 Absolute Neuts (auto) 4.2 Absolute Lymphs (auto) 1.74 Nucleated RBC % 0 Sodium 139 Potassium 3.3 L Chloride 111 H Carbon Dioxide 21.0 Anion Gap 7 BUN 15 Creatinine 1.00 Estim Creat Clear Calc 70.52 Est GFR (MDRD) Af Amer 86 Est GFR (MDRD) Non-Af 71 BUN/Creatinine Ratio 15.0 Glucose 116 H Calcium 9.1 Serum , Qual NEGATIVE Urine Color Yellow Urine Clarity Clear Urine pH 6.0 Ur Specific [place] 1.025 Urine Protein Negative Urine Glucose (UA) Normal Urine Ketones Negative Urine Occult Blood 25 H Urine Nitrite Negative Urine Bilirubin Negative Urine Urobilinogen Normal Ur Leukocyte Esterase 25 H Urine RBC 0-5 SEEN Urine WBC 0-5 SEEN Ur Squamous Epith Cells 0 SEEN Urine Bacteria 1+ Urine Mucus 0 SEEN Urine Opiates Screen NEGATIVE Urine Methadone Screen NEGATIVE Ur Barbiturates Screen NEGATIVE Ur Phencyclidine Scrn NEGATIVE Ur Amphetamines Screen NEGATIVE MDMA (Ecstasy) Screen NEGATIVE U Benzodiazepines Scrn NEGATIVE Urine Cocaine Screen POSITIVE H U Cannabinoids Screen POSITIVE H Ur Drug Screen Comment Ethyl Alcohol < 3.0 Treatment and Re-Evaluation Narrative: In my professional opinion patient has no metabolic or infectious disease and is stable for admission to psychiatric hospital to treat her depression and suicidal ideation. <Dr. Adrián Seymour, DO - Last Filed: 06/10/23 06:56> [facility] Lab Data Labs: Laboratory Results - last 24 hr 06/09/23 06/09/23 19:50 19:56 WBC 6.6 RBC 4.34 Hgb 13.4 Hct 40.8 MCV 94.0 MCH 30.9 MCHC 32.8 RDW Std Deviation 44.2 H RDW Coeff of Vickie 12.7 Plt Count 263 MPV 10.0 Immature Gran % (Auto) 0.300 Neut % (Auto) 62.6 Lymph % (Auto) 26.3 [place] % (Auto) 8.8 Eos % (Auto) 1.7 Baso % (Auto) 0.3 Absolute Neuts (auto) 4.2 Absolute Lymphs (auto) 1.74 Nucleated RBC % 0 Sodium 139 Potassium 3.3 L Chloride 111 H Carbon Dioxide 21.0 Anion Gap 7 BUN 15 Creatinine 1.00 Estim Creat Clear Calc 70.52 Est GFR (MDRD) Af Amer 86 Est GFR (MDRD) Non-Af 71 BUN/Creatinine Ratio 15.0 Glucose 116 H Calcium 9.1 Serum , Qual NEGATIVE Urine Color Yellow Urine Clarity Clear Urine pH 6.0 Ur Specific [place] 1.025 Urine Protein Negative Urine Glucose (UA) Normal Urine Ketones Negative Urine Occult Blood 25 H Urine Nitrite Negative Urine Bilirubin Negative Urine Urobilinogen Normal Ur Leukocyte Esterase 25 H Urine RBC 0-5 SEEN Urine WBC 0-5 SEEN Ur Squamous Epith Cells 0 SEEN Urine Bacteria 1+ Urine Mucus 0 SEEN Urine Opiates Screen NEGATIVE Urine Methadone Screen NEGATIVE Ur Barbiturates Screen NEGATIVE Ur Phencyclidine Scrn NEGATIVE Ur Amphetamines Screen NEGATIVE MDMA (Ecstasy) Screen NEGATIVE U Benzodiazepines Scrn NEGATIVE Urine Cocaine Screen POSITIVE H U Cannabinoids Screen POSITIVE H Ur Drug Screen Comment Ethyl Alcohol < 3.0 Treatment and Re-Evaluation Narrative: In my professional opinion patient has no metabolic or infectious disease and is stable for admission to psychiatric hospital to treat her depression and suicidal ideation. The patient was signed out to me while awaiting placement by crisis center. The patient was excepted to [facility]. She is remained calm and cooperative throughout the shift commander and has not required chemical or physical sedation. She remains hemodynamically stable and is medically cleared for transfer/placement in a psychiatric center. Discharge Plan Triage Chief Complaint: Suicidal ED Provider: Mainor Mari Dx/Rx/DC Orders Clinical Impression: Cocaine use, Suicidal ideation, Depression Prescriptions: No Action citalopram 20 mg tablet 20 mg PO DAILY Patient Comments: TAKE 1 TABLET BY MOUTH ONCE DAILY meclizine [meclizine] 25 mg tablet 25 mg PO Q8H PRN PRN (Reason: Dizziness) Qty: 20 0RF Primary Care Provider: Care Physician,No Primary Referrals: Care Physician,No Primary [Primary Care Provider] - Disposition Disposition: Psychiatric Hospital or Unit Discharge Location: [facility] Discharge Date/Time: 06/10/23 10:29
[2023-06-09 20:01] LABS: Mucous, Urine 0 SEEN /hpf (<or=2+); Squamous Epithelial Cells - UA 0 SEEN /hpf (5-10)
[2023-06-09 20:03] LABS: Absolute Lymphocyte Count 1.74 X10^3/uL (0.83-4.51); Absolute Neutrophil Count 4.2 X10^3/uL (2.0-7.7); Basophil# 0.02 X10^3/uL; Basophil% 0.3 % (0-1); Eosinophil# 0.11 X10^3/uL; Eosinophils% 1.7 % (0-5); Hematocrit 40.8 % (37-47); Hemoglobin 13.4 g/dL (12.0-15.0); Lymphocyte # 1.74 X10^3/ul (0.83-4.51); Lymphocyte % 26.3 % (19-41); Mean Corp Hgb Conc 32.8 g/dL (32-36); Mean Corpuscular Hgb 30.9 pg (27.0-32.0); Monocyte# 0.58 X10^3/uL; Monocyte% 8.8 % (0-10); NRBC Flagged by Analyzer 0 % (0-5); Neutrophil # 4.15 X10^3/uL (2.7-7.7); Neutrophil % 62.6 % (47-70); Platelet Count 263 K/mm3 (150-450); RBC Distribution Width CV 12.7 % (11.6-14.6); RBC Distribution Width SD 44.2 fl (35.1-43.9); Red Blood Count 4.34 M/mm3 (4.2-5.4); White Blood Count 6.6 K/mm3 (4.4-11.0)
[2023-06-09 20:15] LABS: Color, Urine Yellow (Yellow); Glucose, Dipstick Normal (Normal); Ketone-Dipstick Negative (Negative); Leukocyte Esterase-Dipstick 25 /ul (Negative); Nitrite-Dipstick Negative (Negative); Occult Blood-Urine 25 /ul (Negative); Protein-Dipstick Negative (Negative); Specific Gravity, Urine 1.025 (1.002-1.030); Urine Bilirubin Dipstick Negative (Negative); Urine Clarity Clear (Clear); Urine Urobilinogen Normal (Normal)
[2023-06-09 20:17] LABS: Internal QC Validated? YES +Cl - CLEAR BKGD; Pregnancy, Serum, hCG Quali. NEGATIVE Negative
[2023-06-09 20:20] LABS: Alcohol, Blood (Medical)-Serum < 3.0 mg/dL
[2023-06-09 20:20] LABS: Amphetamine Urine VISTA NEGATIVE (<1000 ng/mL); Barbiturate Urine VISTA NEGATIVE (< 200 ng/mL); Benzodiazepine Urine VISTA NEGATIVE (< 200 ng/mL); Cocaine Urine VISTA POSITIVE (< 300 ng/mL); Ecstacy Urine VISTA NEGATIVE (< 500 ng/mL); Methadone Urine VISTA NEGATIVE (< 300 ng/mL); PCP Urine VISTA NEGATIVE (< 25 ng/mL); THC Urine VISTA POSITIVE (< 50 ng/mL); Vista UDS pH Range 6
[2023-06-09 20:21] LABS: Anion Gap 7 (5-15); BUN 15 mg/dL (7-18); Calcium,Total 9.1 mg/dL (8.5-10.1); Chloride 111 mmol/L (98-107); EST Glomerular Filtration Rate 71 mL/min (>60); Est Glom Filt Rate - Afr Amer 86 mL/min (>60); Estimated Creatinine Clearance 70.52 ml/min; Glucose 116 mg/dL (74-106); Potassium 3.3 mmol/L (3.5-5.1); Sodium Level 139 mmol/L (136-145)
[2023-06-09 20:24] LABS: Bacteria 1+ /hpf (None Seen); Red Blood Cells-Urine 0-5 SEEN /hpf (0-5); White Blood Cells 0-5 SEEN /hpf (0-5)
--- NOTE | 2023-06-09 22:02 | ED.RN ---
Pt requesting medication for anxiety. Dr Mari notified. ativan order was placed.
[2023-06-09] MEDS: LORazepam 0.5 MG Tablet PO (22:56)
[2023-06-10 02:58] VITALS: RESP 14
[2023-06-10 06:35] VITALS: RESP 16
[2023-06-10 08:48] VITALS: BP 116/63; PULSE 74; RESP 14; O2SAT 99
[2023-06-10 09:45] VITALS: RESP 14
--- NOTE | 2023-06-10 09:46 | NURSING ---
[facility] CALLED WITH ACCEPTANCE -- DR RENEE RN TO RN [phone]-- [id number]-- CALLED PHYSICIANS TO SET UP TRANSPORT ETA GIVEN: 30-45 MINUTES-- [id number]
[2023-06-10 09:54] VITALS: BP 114/70; PULSE 69; RESP 14; O2SAT 98
[2023-06-10] MEDS: hydrOXYzine PAM 25 MG Capsule PO (10:04)
== END 2023-06-10 10:29 ==
PROVIDERS: Emergency Provider Emergency Medicine; Visit Provider Emergency Medicine
DX: R45.851 Suicidal ideations (principal); F32.A Depression, unspecified; F14.90 Cocaine use, unspecified, uncomplicated; Z79.899 Other long term (current) drug therapy
CPT/HCPCS: 36415; 80048; 80307; 81001; 82077; 84703; 85025; 87811; 99284

== ENCOUNTER 2023-06-25 19:00 | Emergency (ER) | payer MEDICAID, SELFPAY ==
[2023-06-25 19:02] VITALS: BP 140/96; PULSE 106; RESP 16; TEMP 36.3; O2SAT 100; BMI 43.1
--- NOTE | 2023-06-25 19:32 | EX.ED.DYSGE1 ---
HPI History of Present Illness Chief Complaint: Dizziness Informant: patient Narrative Narrative: 27-year-old female presenting to the emergency room with chief complaint of generalized weakness/dizziness. She states that she woke this morning and feels very fatigued and tired. She states she has nausea. She feels lightheaded (dizziness). She states that yesterday she had a rather uneventful day. She denies any ingestions or changes in medications. She denies feeling depressed. No recent fevers. No vomiting or diarrhea. No URI symptoms. She denies rashes. She states that she slept well last night. She has been unable to keep herself awake through most of the day. PFSH PFSH Medical History Alcohol use Anxiety Bruising Depression Easy bruising History of Clostridium difficile infection History of edema History of pre-eclampsia History of recent childbirth Leg cramps Migraine headache Non-smoker Home Medications meclizine 25 mg tablet 25 mg PO Q8H PRN PRN Dizziness #20 tabs 05/07/23 [Rx Last Taken Unknown] citalopram 20 mg tablet 20 mg PO DAILY 05/08/23 [History Last Taken Unknown] Allergy/AdvReac Type Severity Reaction Status Date / Time No Known Allergies Allergy Verified 06/25/23 19:02 Surgical History H/O tubal ligation Social History household members: children Smoking Status: Never smoker ROS ROS ED ROS Narrative Generalized weakness fatigue lightheadedness Constitutional Constitutional ED: Denies chills, fever(s) or weight loss Eyes Eyes: Denies change in vision or diplopia ENT ENT ED: Denies ear pain, rhinorrhea or sore throat Cardiovascular Cardiovascular: Denies chest pain, orthopnea, palpitations or racing heartbeat Respiratory/Chest Respiratory/Chest: Denies cough, dyspnea or orthopnea Gastrointestinal Gastrointestinal: Reports nausea; Denies abdominal pain, diarrhea or vomiting Genitourinary Genitourinary ED: Denies dysuria, hematuria or urinary frequency Musculoskeletal Musculoskeletal: Denies arthralgias or myalgias Integumentary Denies abscess or rash Neurologic Neurologic: Reports weakness; Denies headache(s) or paresthesias Psychiatric Psychiatric: Denies anxiety, depression, suicidal ideation or suicidal thoughts Endocrine Endocrinology: Denies polydipsia, polyphagia or polyuria Allergic/Immunologic Allergic/Immunologic ED: Denies mouth swelling, tongue swelling or urticaria EXAM Physical Exam Const Vital Signs: 06/25/23 19:02 06/25/23 19:14 Temperature 97.4 F L Temperature Source Temporal Pulse Rate 106 H Respiratory Rate 16 Respiratory Effort Short of Breath Blood Pressure 140/96 H Blood Pressure Mean 110 Pulse Ox 100 Positive well nourished, well developed and obese General Appearance ED: well developed Nutritional Appearance: obese HEENT Reports normocephalic, head/scalp atraumatic and moist mucous membranes Eyes PERRL and EOMs intact bilaterally Neck no lymphadenopathy, supple and no JVD Resp normal respiratory effort and clear to auscultation bilaterally Cardio regular rate, regular rhythm and no murmurs GI normal to inspection, nondistended, normoactive bowel sounds and non-tender Palpation: soft Back/Spine no CVA tenderness and normal ROM Extremity normal to inspection General Extremety ED: Negative for edema General Extremity: Negative for edema Neuro oriented x3 and CN's II-XII intact bilaterally Sensorium / Orientation: alert Motor Exam: strength 5/5 throughout Psych mental status grossly normal Mood & Affect: Negative for depressed or tearful Skin no rashes or lesions noted and no wounds MDM MDM MDM Narrative Medical decision making narrative: Basic blood work was essentially negative. test is negative the patient has a normal TSH. Also no over infection. Toxicology negative. Patient has had normal vital signs. On repeat examination her heart rate is at 71 while we talk. Blood pressure is down to 111/72. She remains afebrile. Patient recently underwent medication change 2 weeks ago to Invega and Lamictal. I did send a Lamictal level but this does not come back as it is a send out test. When I recommend the patient go home rest continue her medications but to call her psychiatrist and have them aware of today's visit. Patient advised to return if any new symptoms or worsening symptoms Lab Data Attestation: I reviewed the patient's lab results. Labs: Laboratory Results - last 24 hr 06/25/23 06/25/23 19:17 19:43 WBC 9.1 RBC 4.81 Hgb 14.9 Hct 45.2 MCV 94.0 MCH 31.0 MCHC 33.0 RDW Std Deviation 42.8 RDW Coeff of Vickie 12.4 Plt Count 280 MPV 10.6 Immature Gran % (Auto) 0.500 Neut % (Auto) 59.3 Lymph % (Auto) 28.5 [place] % (Auto) 9.1 Eos % (Auto) 1.9 Baso % (Auto) 0.7 Absolute Neuts (auto) 5.4 Absolute Lymphs (auto) 2.59 Nucleated RBC % 0 Sodium 140 Potassium 3.7 Chloride 109 H Carbon Dioxide 23.0 Anion Gap 8 BUN 19 H Creatinine 1.08 H Estim Creat Clear Calc 65.30 Est GFR (MDRD) Af Amer 78 Est GFR (MDRD) Non-Af 65 BUN/Creatinine Ratio 17.6 Glucose 118 H Calcium 8.9 Total Bilirubin 0.20 AST 13 L ALT 40 Alkaline Phosphatase 59 Total Protein 7.7 Albumin 3.6 Globulin 4.1 Albumin/Globulin Ratio 0.9 TSH 1.19 Serum , Qual NEGATIVE Urine Color Yellow Urine Clarity Sl. Cloudy Urine pH 6.0 Ur Specific [place] 1.025 Urine Protein Negative Urine Glucose (UA) Normal Urine Ketones Negative Urine Occult Blood 50 H Urine Nitrite Negative Urine Bilirubin Negative Urine Urobilinogen Normal Ur Leukocyte Esterase 25 H Urine RBC 0-5 SEEN Urine WBC 5-10 SEEN Ur Squamous Epith Cells 0-5 SEEN Amorphous Sediment 1+ URATE Urine Bacteria 0 SEEN Urine Mucus 0 SEEN Urine Opiates Screen NEGATIVE Urine Methadone Screen NEGATIVE Ur Barbiturates Screen NEGATIVE Ur Phencyclidine Scrn NEGATIVE Ur Amphetamines Screen NEGATIVE MDMA (Ecstasy) Screen NEGATIVE U Benzodiazepines Scrn NEGATIVE Urine Cocaine Screen NEGATIVE U Cannabinoids Screen NEGATIVE Ur Drug Screen Comment Ethyl Alcohol 3.0 Discharge Plan Triage Chief Complaint: Dizziness ED Provider: Dorian Luna Dx/Rx/DC Orders Clinical Impression: Fatigue, Light-headedness Instructions: ED Dizziness, Uncertain Cause Prescriptions: No Action citalopram 20 mg tablet 20 mg PO DAILY Patient Comments: TAKE 1 TABLET BY MOUTH ONCE DAILY meclizine [meclizine] 25 mg tablet 25 mg PO Q8H PRN PRN (Reason: Dizziness) Qty: 20 0RF Primary Care Provider: Care Physician,No Primary Referrals: Greg Mckay MD [Med Staff - Banquet Lead] - As Needed (For primary care doctor) Care Physician,No Primary [Primary Care Provider] - Activity Restrictions/Additional Instructions: A Lamictal level has been sent to the lab but this is a send out test and will not be back for several days. Please mention this to your doctor so they can check the level. Disposition Disposition: Home, Self Care
[2023-06-25 19:45] LABS: Absolute Lymphocyte Count 2.59 X10^3/uL (0.83-4.51); Absolute Neutrophil Count 5.4 X10^3/uL (2.0-7.7); Basophil# 0.06 X10^3/uL; Basophil% 0.7 % (0-1); Eosinophil# 0.17 X10^3/uL; Eosinophils% 1.9 % (0-5); Hematocrit 45.2 % (37-47); Hemoglobin 14.9 g/dL (12.0-15.0); Lymphocyte # 2.59 X10^3/ul (0.83-4.51); Lymphocyte % 28.5 % (19-41); Mean Platelet Vol. 10.6 fl (6.2-12.0); Monocyte# 0.83 X10^3/uL; Monocyte% 9.1 % (0-10); NRBC Flagged by Analyzer 0 % (0-5); Neutrophil % 59.3 % (47-70); Platelet Count 280 K/mm3 (150-450); RBC Distribution Width CV 12.4 % (11.6-14.6); RBC Distribution Width SD 42.8 fl (35.1-43.9); Red Blood Count 4.81 M/mm3 (4.2-5.4); White Blood Count 9.1 K/mm3 (4.4-11.0)
[2023-06-25 19:52] LABS: Bacteria 0 SEEN /hpf (None Seen); Mucous, Urine 0 SEEN /hpf (<or=2+)
[2023-06-25 20:04] LABS: Color, Urine Yellow (Yellow); Glucose, Dipstick Normal (Normal); Ketone-Dipstick Negative (Negative); Leukocyte Esterase-Dipstick 25 /ul (Negative); Nitrite-Dipstick Negative (Negative); Occult Blood-Urine 50 /ul (Negative); Protein-Dipstick Negative (Negative); Specific Gravity, Urine 1.025 (1.002-1.030); Urine Bilirubin Dipstick Negative (Negative); Urine Clarity Sl. Cloudy (Clear); Urine Urobilinogen Normal (Normal)
[2023-06-25 20:14] LABS: Internal QC Validated? YES +Cl - CLEAR BKGD; Pregnancy, Serum, hCG Quali. NEGATIVE Negative
[2023-06-25 20:17] LABS: Amphetamine Urine VISTA NEGATIVE (<1000 ng/mL); Barbiturate Urine VISTA NEGATIVE (< 200 ng/mL); Benzodiazepine Urine VISTA NEGATIVE (< 200 ng/mL); Cocaine Urine VISTA NEGATIVE (< 300 ng/mL); Ecstacy Urine VISTA NEGATIVE (< 500 ng/mL); Methadone Urine VISTA NEGATIVE (< 300 ng/mL); PCP Urine VISTA NEGATIVE (< 25 ng/mL); THC Urine VISTA NEGATIVE (< 50 ng/mL); Vista UDS pH Range 6
[2023-06-25 20:18] LABS: ALB/GLOB Ratio 0.9 RATIO (0.9-2.4); AST(SGOT) 13 U/L (15-37); Alanine Aminotransfer ALT/SGPT 40 U/L (13-56); Albumin, Serum 3.6 g/dL (3.2-5.0); Alkaline Phosphatase 59 U/L (45-117); Anion Gap 8 (5-15); BUN 19 mg/dL (7-18); BUN/Creat Ratio 17.6 RATIO (10-20); Calcium,Total 8.9 mg/dL (8.5-10.1); Chloride 109 mmol/L (98-107); Creatinine, Serum 1.08 mg/dL (0.55-1.02); EST Glomerular Filtration Rate 65 mL/min (>60); Est Glom Filt Rate - Afr Amer 78 mL/min (>60); Globulin 4.1 g/dL (2.2-4.2); Glucose 118 mg/dL (74-106); Potassium 3.7 mmol/L (3.5-5.1); Protein, Total 7.7 g/dL (6.4-8.2); Sodium Level 140 mmol/L (136-145); Thyroid Stim Hormone (TSH) 1.19 uIU/mL (0.358-3.74)
[2023-06-25 20:30] LABS: Red Blood Cells-Urine 0-5 SEEN /hpf (0-5); Squamous Epithelial Cells - UA 0-5 SEEN /hpf (5-10); White Blood Cells 5-10 SEEN /hpf (0-5)
[2023-06-25 20:31] LABS: Amorphous Sediment 1+ URATE
[2023-06-25 21:19] VITALS: BP 124/87
[2023-06-28 16:09] LABS: Lamotrigine (Lamictal) Level < 1.0 ug/mL (2.0-20.0)
== END 2023-06-25 21:20 | disposition home or self-care (01) ==
PROVIDERS: Emergency Provider Emergency Medicine; Visit Provider Emergency Medicine
DX: R42 Dizziness and giddiness (principal); R53.83 Other fatigue; F32.A Depression, unspecified; Z79.899 Other long term (current) drug therapy
CPT/HCPCS: 80053; 80307; 81001; 82077; 82542; 84443; 84703; 85025; 99283; A4216

== ENCOUNTER 2023-08-18 12:05 | Emergency (ER) | payer MEDICAID, SELFPAY ==
[2023-08-18 12:06] VITALS: BP 133/78; PULSE 88; RESP 18; TEMP 36; O2SAT 99; BMI 41.6
--- NOTE | 2023-08-18 12:20 | EKG12_ITS ---
Test Reason : ANXIETY Blood Pressure : / mmHG Vent. Rate : 073 BPM Atrial Rate : 073 BPM P-R Int : 158 ms QRS Dur : 074 ms QT Int : 392 ms P-R-T Axes : 002 045 025 degrees QTc Int : 431 ms Normal sinus rhythm with sinus arrhythmia Low voltage QRS Borderline ECG Confirmed by KINGS MORALES, KAREN ([id number]), newspaper editor managing MERT BAILEY ([id number]) on 08/26/2023 7:06:05 AM Referred By: Confirmed By:YOANNA KU MD
--- NOTE | 2023-08-18 12:55 | RAD_ITS ---
INDICATION: chest pain EXAMINATION/TECHNIQUE: X-RAY - XR Chest 2 Views COMPARISON: No relevant prior comparison study available FINDINGS: LINES/DEVICES: None. LUNGS: No consolidation, edema or effusion. No pneumothorax. MEDIASTINUM AND CARDIOVASCULAR STRUCTURES: Cardiac silhouette not enlarged. Central airways and mediastinal contour are unremarkable. BONES AND SOFT TISSUES: Unremarkable. RAD/Chest PA and Lateral IMPRESSION: No radiographic evidence of acute cardiopulmonary disease. Electronically Signed: Phi Whitney MD at 13:05 EST ,
--- NOTE | 2023-08-18 12:56 | EX.ED.VIS.PS ---
HPI HPI - Psych History of Present Illness Chief Complaint: Anxiety Informant: patient Narrative Narrative: Patient is 28-year-old female with history of bipolar disorder on Invega and Lamictal presenting after panic attack. Patient says she has a history of panic attacks but today she continues to have chest pressure and chest pain which is abnormal for her. She states that she was anxious today and feeling overwhelmed because she was trying to get shift covered to see her son. She notes that she actually got the shift covered but then after that had a panic attack. States he was hyperventilating actually vomited. She notes she is had worse. She took Vistaril about an hour prior to arrival but states it has not really worked which is what she came in. She states she feels like her heart is racing. She is hoping for something to help her get through this anxiety. States besides anxiety she is been feeling well. She does feel that there is bricks on her chest. Denies any swelling of her legs. Denies any abdominal pain. Denies any difficulty breathing. Denies any recent sick contacts. No other complaints at this time. PFSH PFSH Medical History Alcohol use Anxiety Bruising Depression Easy bruising History of Clostridium difficile infection History of edema History of pre-eclampsia History of recent childbirth Leg cramps Migraine headache Non-smoker Home Medications meclizine 25 mg tablet 25 mg PO Q8H PRN PRN Dizziness #20 tabs 05/07/23 [Rx Last Taken Unknown] citalopram 20 mg tablet 20 mg PO DAILY 05/08/23 [History Last Taken Unknown] Allergy/AdvReac Type Severity Reaction Status Date / Time No Known Allergies Allergy Verified 08/18/23 12:06 Surgical History H/O tubal ligation Social History household members: children Smoking Status: Never smoker ROS ROS ED Constitutional Constitutional ED: Denies chills or fever(s) Eyes Eyes: Denies change in vision Cardiovascular Cardiovascular: Reports chest pain and racing heartbeat Respiratory/Chest Respiratory/Chest: Reports dyspnea; Denies cough Gastrointestinal Gastrointestinal: Reports vomiting; Denies abdominal pain Musculoskeletal Musculoskeletal: Denies arthralgias or myalgias Integumentary Denies rash Neurologic Neurologic: Denies headache(s) or weakness Psychiatric Psychiatric: Reports anxiety; Denies depression EXAM Physical Exam Const Vital Signs: 08/18/23 12:06 08/18/23 12:28 Temperature 96.8 F L Temperature Source Temporal Pulse Rate 88 Respiratory Rate 18 Respiratory Effort Short of Breath Blood Pressure 133/78 H Blood Pressure Mean 96 Pulse Ox 99 Oxygen Delivery Method Room Air Positive well nourished, well developed and obese General Appearance ED: well developed and NAD Nutritional Appearance: obese HEENT Reports moist mucous membranes Eyes PERRL and EOMs intact bilaterally Neck supple and no JVD Resp normal respiratory effort and clear to auscultation bilaterally Cardio no murmurs Rate: regular rate Rhythm: regular rhythm GI non-tender and non-distended Palpation: soft; Negative for guarding Extremity normal to inspection General Extremety ED: Negative for edema General Extremity: Negative for edema Neuro oriented x3 Sensorium / Orientation: alert Motor Exam: Negative for general weakness Psych mental status grossly normal and thought process normal Speech: normal speech Mood & Affect: anxious Thought Process: normal thought process Thought Content: normal thought content Attention / Concentration: attention grossly intact Memory / Cognition: memory grossly intact Insight: insight good Judgement: judgement good Skin Lesions: no lesions Rashes: no rashes MDM MDM MDM Narrative Medical decision making narrative: Patient is evaluated for panic attack with some associated chest pressure. Appears nontoxic in no acute distress. Suspect chest pressure is secondary to anxiety reaction but will obtain ECG and CXR. Differential includes anxiety reaction, pneumothorax less likely ACS/pericarditis/pulmonary emboli. She is PE RC negative and I do not think needs work-up for pulmonary emboli. EKG shows normal sinus rhythm with sinus arrhythmia. I do not think there is a primary cardiac event. Two-view chest x-ray reviewed by myself as well as radiology does not show any acute process. Patient is given 1 dose of oral Ativan in the ER. Counseled that she needs to follow-up with her psychiatrist for further treatment of her anxiety. Counseled that what she is on pretty strong psychiatric medicines are not for primarily anxiety and there is a lot of room for medical management from that. She feels comfortable going home. Friend at the bedside able to drive her home. Given return precautions. Discharged home in stable condition. Did discuss that the ER will not prescribe Ativan/benzodiazepines because of its dependent nature and that if this becomes a recurrent issue the ER will not continue to give her doses of Ativan in the ER. She does verbalize agreement and understanding with this. Rhythm Strip Rhythm Strip: Sinus Rhythm Rate: 73 Ectopy: None EKG Initial EKG: Attestation: I personally reviewed and interpreted this EKG as follows: Interpretation: Sinus Rhythm Comments: Normal sinus rhythm with a rate of 73 bpm with sinus arrhythmia Normal axis Normal intervals Low voltage QRS Normal ST segments Prior EKG tracings: available for review Prior: Unchanged Discharge Plan Triage Chief Complaint: Anxiety Other Complaint: Chest Other ED Provider: Jeannette Roblero Dx/Rx/DC Orders Clinical Impression: Anxiety Instructions: ED Anxiety Reaction Prescriptions: No Action citalopram 20 mg tablet 20 mg PO DAILY Hold Instructions: Pt has been DC'd Patient Comments: TAKE 1 TABLET BY MOUTH ONCE DAILY meclizine [meclizine] 25 mg tablet 25 mg PO Q8H PRN PRN (Reason: Dizziness) Qty: 20 0RF Primary Care Provider: Care Physician,No Primary Referrals: Care Physician,No Primary [Primary Care Provider] - Activity Restrictions/Additional Instructions: Please follow-up with your psychiatrist to discuss your anxiety she might need medication adjustment for better deal with anxiety. Please also follow-up with your counselor. Your EKG and chest x-ray were largely normal. Disposition Disposition: Home, Self Care
[2023-08-18] MEDS: LORazepam 1 MG Tablet PO (13:02)
[2023-08-18 13:13] VITALS: BP 114/63; PULSE 74; RESP 20; O2SAT 98
[2023-08-18 13:20] VITALS: BP 126/81; PULSE 85; RESP 12; O2SAT 98
== END 2023-08-18 13:25 | disposition home or self-care (01) ==
PROVIDERS: Emergency Provider Emergency Medicine; Visit Provider Emergency Medicine
DX: F41.9 Anxiety disorder, unspecified (principal); F31.9 Bipolar disorder, unspecified; Z79.899 Other long term (current) drug therapy
CPT/HCPCS: 71046; 93005; 99283

== ENCOUNTER 2023-08-20 12:04 | Emergency (ER) | payer MEDICAID, SELFPAY ==
[2023-08-20 12:05] VITALS: BP 151/89; PULSE 112; RESP 18; TEMP 35.9; O2SAT 98; BMI 41.4
--- NOTE | 2023-08-20 12:15 | EX.ED.DYSGE1 ---
HPI <JEIMY Richardson - Last Filed: 08/20/23 16:19> History of Present Illness Chief Complaint: Depression Narrative Narrative: 28-year-old female with a past medical history of bipolar states over the last 4 days she has had worsening anxiety and depression. She was seen here for anxiety attack 2 days ago and given Ativan. She takes hydroxyzine as needed but its not helping. She states she does not have the energy to get out of bed or do tasks of daily living. She denies being suicidal or having a plan. She has a psychiatry appointment in 1 week but states she cannot wait that long. She takes Invega and Lamictal for her bipolar. PFSH <JEIMY Richardson - Last Filed: 08/20/23 16:19> [facility] Medical History Alcohol use Anxiety Bruising Depression Easy bruising History of Clostridium difficile infection History of edema History of pre-eclampsia History of recent childbirth Leg cramps Migraine headache Non-smoker Home Medications meclizine 25 mg tablet 25 mg PO Q8H PRN PRN Dizziness #20 tabs 05/07/23 [Rx Last Taken Unknown] citalopram 20 mg tablet 20 mg PO DAILY 05/08/23 [History Last Taken Unknown] Allergy/AdvReac Type Severity Reaction Status Date / Time No Known Allergies Allergy Verified 08/20/23 12:07 Surgical History H/O tubal ligation Social History household members: children Smoking Status: Never smoker ROS <JEIMY Richardson - Last Filed: 08/20/23 16:19> ROS ED ROS Narrative Constitutional: Negative for fever, chills, malaise. CVS: Negative for palpitations, chest pain. Respiratory: Negative for shortness of breath. GI: Negative for abdominal pain, nausea, vomiting. EXAM <JEIMY Richardson Last Filed: 08/20/23 16:19> Physical Exam Narrative Exam Narrative: CONST: Patient sitting in no acute distress. EYES: Normal inspection. NECK: Normal inspection. RESP: No respiratory distress, CTAB. CVS: Regular rate and rhythm, no murmur, no gallop. SKIN: Color normal, no rash, warm, dry, intact. EXTREMITIES: Normal appearance, no pedal edema. NEURO: Oriented x4. PSYCH: Normal affect. Patient calm and answering questions appropriately. Const Vital Signs: 08/20/23 12:05 08/20/23 14:17 08/20/23 15:25 Temperature 96.6 F L Temperature Source Temporal Pulse Rate 112 H 91 Respiratory Rate 18 18 18 Blood Pressure 151/89 H Blood Pressure Mean 109 Pulse Ox 98 97 97 Oxygen Delivery Method Room Air Room Air Room Air 08/20/23 16:08 Temperature Temperature Source Pulse Rate 87 Respiratory Rate 18 Blood Pressure 133/56 H Blood Pressure Mean 81 Pulse Ox 98 Oxygen Delivery Method Room Air <Dr. Anirudh Hayes MD - Last Filed: 08/20/23 12:24> Physical Exam Const Vital Signs: 08/20/23 12:05 08/20/23 14:17 08/20/23 15:25 Temperature 96.6 F L Temperature Source Temporal Pulse Rate 112 H 91 Respiratory Rate 18 18 18 Blood Pressure 151/89 H Blood Pressure Mean 109 Pulse Ox 98 97 97 Oxygen Delivery Method Room Air Room Air Room Air 08/20/23 16:08 Temperature Temperature Source Pulse Rate 87 Respiratory Rate 18 Blood Pressure 133/56 H Blood Pressure Mean 81 Pulse Ox 98 Oxygen Delivery Method Room Air MDM <JEIMY Richardson - Last Filed: 08/20/23 16:19> MDM MDM Narrative Medical decision making narrative: Patient presents with increasing anxiety and depression. Has history of bipolar started medications a month ago. She states she does not have little while but has no active suicidal plan. She is awake and alert with stable vital signs. She is calm during our discussion and answering appropriately. I had social work evaluate her who feels she would benefit from inpatient psychiatric evaluation. Labs were ordered for medical clearance. CBC is unremarkable. BMP shows creatinine of 1.18 with normal electrolytes. Alcohol and urine tox screens are negative. She complains of being nauseated and anxious here and was treated with Zofran and hydroxyzine. She is medically cleared for transfer to psychiatric facility. Differential: Bipolar, mood disorder, medication side effects Consults: Social work I have personally performed a face to face assessment of the patient and have reviewed the BETH Note. I performed a substantive portion of the visit including all aspects of the following. My koo findings include: History is [28-year-old female history of anxiety currently under the care of of [facility] and on medications. Denies being suicidal.] Exam is [appearing 28-year-old female. Vital signs are stable and afebrile. H EENT exam unremarkable. Lungs clear. Heart regular rhythm. Abdomen soft nontender. Moving all 4 extremities. 5/5 treadle cut off saw operator strength. Dorsi plantarflexion intact. No track smallwood. Back unremarkable. Neurologically she is awake and alert. Answering questions following commands. Makes good eye contact. Forthcoming with information. Acting appropriately.] Medical Decision Making [we will be evaluated by our social organization professor. At this time most likely she should be able to be discharged home.] Other additions or changes: [None] Lab Data Attestation: I reviewed the patient's lab results. Labs: Laboratory Results - last 24 hr 08/20/23 08/20/23 13:50 13:55 WBC 8.8 RBC 5.02 Hgb 15.0 Hct 47.1 H MCV 93.8 MCH 29.9 MCHC 31.8 L RDW Std Deviation 42.2 RDW Coeff of Vickie 12.2 Plt Count 254 MPV 11.0 Immature Gran % (Auto) 0.500 Neut % (Auto) 70.0 Lymph % (Auto) 21.4 [place] % (Auto) 6.8 Eos % (Auto) 0.8 Baso % (Auto) 0.5 Absolute Neuts (auto) 6.2 Absolute Lymphs (auto) 1.89 Nucleated RBC % 0 Sodium 139 Potassium 5.0 Chloride 106 Carbon Dioxide 25.0 Anion Gap 8 BUN 11 Creatinine 1.18 H Estim Creat Clear Calc 59.24 Est GFR (MDRD) Af Amer 71 Est GFR (MDRD) Non-Af 58 L BUN/Creatinine Ratio 9.3 L Glucose 90 Calcium 9.6 Serum , Qual NEGATIVE Urine Opiates Screen NEGATIVE Urine Methadone Screen NEGATIVE Ur Barbiturates Screen NEGATIVE Ur Phencyclidine Scrn NEGATIVE Ur Amphetamines Screen NEGATIVE MDMA (Ecstasy) Screen NEGATIVE U Benzodiazepines Scrn NEGATIVE Urine Cocaine Screen NEGATIVE U Cannabinoids Screen NEGATIVE Ur Drug Screen Comment Ethyl Alcohol < 3.0 <Dr. Anirudh Hayes MD - Last Filed: 08/20/23 12:24> MDM MDM Narrative Medical decision making narrative: I have personally performed a face to face assessment of the patient and have reviewed the BETH Note. I performed a substantive portion of the visit including all aspects of the following. My koo findings include: History is [28-year-old female history of anxiety currently under the care of of [facility] and on medications. Denies being suicidal.] Exam is [appearing 28-year-old female. Vital signs are stable and afebrile. H EENT exam unremarkable. Lungs clear. Heart regular rhythm. Abdomen soft nontender. Moving all 4 extremities. 5/5 treadle cut off saw operator strength. Dorsi plantarflexion intact. No track smallwood. Back unremarkable. Neurologically she is awake and alert. Answering questions following commands. Makes good eye contact. Forthcoming with information. Acting appropriately.] Medical Decision Making [we will be evaluated by our social organization professor. At this time most likely she should be able to be discharged home.] Other additions or changes: [None] History & Record Review Discussion w/independent historian: Patient Additional record(s) reviewed:: Prior inpatient record, Prior outpatient record, Prior ED visit and Prior labs Lab Data Labs: Laboratory Results - last 24 hr 08/20/23 08/20/23 13:50 13:55 WBC 8.8 RBC 5.02 Hgb 15.0 Hct 47.1 H MCV 93.8 MCH 29.9 MCHC 31.8 L RDW Std Deviation 42.2 RDW Coeff of Vickie 12.2 Plt Count 254 MPV 11.0 Immature Gran % (Auto) 0.500 Neut % (Auto) 70.0 Lymph % (Auto) 21.4 [place] % (Auto) 6.8 Eos % (Auto) 0.8 Baso % (Auto) 0.5 Absolute Neuts (auto) 6.2 Absolute Lymphs (auto) 1.89 Nucleated RBC % 0 Sodium 139 Potassium 5.0 Chloride 106 Carbon Dioxide 25.0 Anion Gap 8 BUN 11 Creatinine 1.18 H Estim Creat Clear Calc 59.24 Est GFR (MDRD) Af Amer 71 Est GFR (MDRD) Non-Af 58 L BUN/Creatinine Ratio 9.3 L Glucose 90 Calcium 9.6 Serum , Qual NEGATIVE Urine Opiates Screen NEGATIVE Urine Methadone Screen NEGATIVE Ur Barbiturates Screen NEGATIVE Ur Phencyclidine Scrn NEGATIVE Ur Amphetamines Screen NEGATIVE MDMA (Ecstasy) Screen NEGATIVE U Benzodiazepines Scrn NEGATIVE Urine Cocaine Screen NEGATIVE U Cannabinoids Screen NEGATIVE Ur Drug Screen Comment Ethyl Alcohol < 3.0 Discharge Plan Triage Chief Complaint: Depression ED Midlevel Provider: Nanci Esparza ED Provider: Anirudh Hayes Dx/Rx/DC Orders Clinical Impression: Depression Prescriptions: No Action citalopram 20 mg tablet 20 mg PO DAILY Hold Instructions: Pt has been DC'd Patient Comments: TAKE 1 TABLET BY MOUTH ONCE DAILY meclizine [meclizine] 25 mg tablet 25 mg PO Q8H PRN PRN (Reason: Dizziness) Qty: 20 0RF Primary Care Provider: Care Physician,No Primary Referrals: Care Physician,No Primary [Primary Care Provider] -
--- NOTE | 2023-08-20 12:20 | ED.RN ---
PT STATES SHE DOES NOT HAVE ANY SPECIFIC SUICIDAL IDEATIONS OR PLAN. PT DOES STATE IF SHE HAD THE CHANCE TO BE ALIVE OR NOT SHE WOULD CHOOSE TO NOT BE ALIVE. PT STATES HX OF PREVIOUS SUICIDE ATTEMPTS. PT STATES SHE FEELS SAFE AT HOME. DR. TALON MAX.
[2023-08-20] MEDS: Ondansetron 4 MG/2 ML Vial IV (14:02)
[2023-08-20 14:07] LABS: Absolute Lymphocyte Count 1.89 X10^3/uL (0.83-4.51); Absolute Neutrophil Count 6.2 X10^3/uL (2.0-7.7); Basophil# 0.04 X10^3/uL; Basophil% 0.5 % (0-1); Eosinophil# 0.07 X10^3/uL; Eosinophils% 0.8 % (0-5); Hematocrit 47.1 % (37-47); Lymphocyte # 1.89 X10^3/ul (0.83-4.51); Lymphocyte % 21.4 % (19-41); Mean Corp Hgb Conc 31.8 g/dL (32-36); Mean Corpuscular Hgb 29.9 pg (27.0-32.0); Mean Corpuscular Volume 93.8 fL (81-99); Monocyte% 6.8 % (0-10); NRBC Flagged by Analyzer 0 % (0-5); Neutrophil # 6.19 X10^3/uL (2.7-7.7); Platelet Count 254 K/mm3 (150-450); RBC Distribution Width CV 12.2 % (11.6-14.6); RBC Distribution Width SD 42.2 fl (35.1-43.9); Red Blood Count 5.02 M/mm3 (4.2-5.4); White Blood Count 8.8 K/mm3 (4.4-11.0)
--- NOTE | 2023-08-20 14:11 | ED.RN ---
PER PT, LAST TIME SHE TOOK PO VISTARIL WAS 1000. PER HOME MEDICATION ORDER, VISTARIL Q6 PRN MAKING MEDICATION NEXT DUE AT 1600. EJIMY QUIROGA AWARE. TOLD THIS RN TO HOLD MEDICATION UNTIL 1600.
[2023-08-20 14:17] VITALS: PULSE 91; RESP 18; O2SAT 97
[2023-08-20 14:18] LABS: Internal QC Validated? YES +Cl - CLEAR BKGD; Pregnancy, Serum, hCG Quali. NEGATIVE Negative
[2023-08-20 14:28] LABS: Alcohol, Blood (Medical)-Serum < 3.0 mg/dL
[2023-08-20 14:38] LABS: Anion Gap 8 (5-15); BUN 11 mg/dL (7-18); BUN/Creat Ratio 9.3 RATIO (10-20); Calcium,Total 9.6 mg/dL (8.5-10.1); Chloride 106 mmol/L (98-107); Creatinine, Serum 1.18 mg/dL (0.55-1.02); EST Glomerular Filtration Rate 58 mL/min (>60); Est Glom Filt Rate - Afr Amer 71 mL/min (>60); Estimated Creatinine Clearance 59.24 ml/min; Glucose 90 mg/dL (74-106); Sodium Level 139 mmol/L (136-145)
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
[2023-08-20 15:25] VITALS: RESP 18; O2SAT 97
[2023-08-20] MEDS: hydrOXYzine PAM 25 MG Capsule PO (16:04)
[2023-08-20 16:08] VITALS: BP 133/56; PULSE 87; RESP 18; O2SAT 98
[2023-08-20 16:14] LABS: Amphetamine Urine VISTA NEGATIVE (<1000 ng/mL); Barbiturate Urine VISTA NEGATIVE (< 200 ng/mL); Benzodiazepine Urine VISTA NEGATIVE (< 200 ng/mL); Cocaine Urine VISTA NEGATIVE (< 300 ng/mL); Ecstacy Urine VISTA NEGATIVE (< 500 ng/mL); Methadone Urine VISTA NEGATIVE (< 300 ng/mL); PCP Urine VISTA NEGATIVE (< 25 ng/mL); THC Urine VISTA NEGATIVE (< 50 ng/mL); Vista UDS pH Range 6
--- NOTE | 2023-08-20 16:48 | CM.ED ---
Social Work Patient accepted to [facility] Unit by Dr. Andersen. [place] is agreeable to patient signing voluntary paperwork upon arrival. Plan: Patient to be transferred to [place], pending transport. Ivette Acosta MSW, SERVICE CLEANER
[2023-08-20 17:29] VITALS: BP 126/69; PULSE 83; RESP 18; O2SAT 97
--- NOTE | 2023-08-20 17:29 | ED.RN ---
THIS RN CALLED REPORT TO [facility] AT 1727. REPORT GIVEN TO HUBERT GALLEGOS.
--- NOTE | 2023-08-20 17:36 | ED.RN ---
REPORT GIVEN TO KAMINI [facility] AT [facility]37. PT AMBULATED TO [facility]. PT A &OX4.
== END 2023-08-20 17:38 | disposition home or self-care (01) ==
PROVIDERS: Physician Assistant; Emergency Provider Emergency Medicine; Visit Provider Emergency Medicine
DX: F32.A Depression, unspecified (principal)
CPT/HCPCS: 80048; 80307; 82077; 84703; 85025; 96374; 99284; A4216; J2405

== ENCOUNTER 2023-08-29 10:40 | Emergency (ER) | payer MEDICAID, SELFPAY ==
[2023-08-29 10:46] VITALS: BP 127/70; PULSE 101; RESP 18; TEMP 36.7; O2SAT 99; BMI 41.3
--- NOTE | 2023-08-29 11:00 | EX.ED.VIS.PS ---
HPI HPI - Psych History of Present Illness Chief Complaint: Anxiety Narrative Narrative: 28-year-old female past medical history of bipolar disorder and anxiety with panic attacks presents with anxiety and panic attack that began this morning. Of note, she was recently released from [facility] for anxiety a few days ago. She states that yesterday she found out she might have syphilis and needs more testing because she has been exhausted. She usually takes Vistaril for her panic attacks and anxiety but it does not work. She called the counseling center who told her to come to the emergency department. She states she cannot stop crying. She denies any suicidal ideation or homicidal ideation. She states she feels like she has been to the emergency department multiple times for this in the past. PFSH PFSH Medical History Alcohol use Anxiety Bruising Depression Easy bruising History of Clostridium difficile infection History of edema History of pre-eclampsia History of recent childbirth Leg cramps Migraine headache Non-smoker Home Medications meclizine 25 mg tablet 25 mg PO Q8H PRN PRN Dizziness #20 tabs 05/07/23 [Rx Last Taken Unknown] citalopram 20 mg tablet 20 mg PO DAILY 05/08/23 [History Last Taken Unknown] Allergy/AdvReac Type Severity Reaction Status Date / Time No Known Allergies Allergy Verified 08/29/23 10:46 Surgical History H/O tubal ligation Social History household members: children Smoking Status: Never smoker ROS ROS ED ROS Narrative Constitutional: No fever, no chills. HEENT: No sore throat. No neck pain. No loss of vision. No rhinorrhea. Cardiovascular: No chest pain. No palpitations. No pedal edema. Respiratory: No cough, no shortness of breath. Abdominal: No abdominal pain. No nausea. No vomiting. Genitourinary: No dysuria. No hematuria. Musculoskeletal: No myalgias. No arthralgias. Neurologic: No headaches. No dizziness. No lightheadedness. Skin: No rash. No change in color. Psychiatric: No depression. Positive anxiety and panic attacks. Increased crying spells. EXAM Physical Exam Narrative Exam Narrative: Afebrile. Vital signs noted. HEENT: Normocephalic. Atraumatic. PERRL, EOMI. Neck soft and supple. No point tenderness or step off. Cardiovascular: Regular rate and rhythm. No murmurs, rubs, or gallops appreciated. Respiratory: Positive hyperventilation and tachypnea on examination. Lungs clear to auscultation bilaterally. Gastrointestinal: Abdomen soft, nontender, with normoactive bowel sounds. No rebound or guarding. Neurological: Awake. Alert. Nonfocal, nonlateralizing. Skin: No rash. Normal color. No pallor. Musculoskeletal: No pedal edema. Full range of motion extremities. Psychiatric: Anxious, tearful, no suicidal ideation or homicidal ideation, no active hallucinations. Const Vital Signs: 08/29/23 10:46 Temperature 98.1 F Temperature Source Temporal Pulse Rate 101 H Respiratory Rate 18 Blood Pressure 127/70 H Blood Pressure Mean 89 Pulse Ox 99 Oxygen Delivery Method Room Air MDM MDM MDM Narrative Medical decision making narrative: I reviewed the patient's prior records. She was here earlier in the month, approximately 11 days ago and she had received Ativan at that time. She was told that prescriptions would not be given at that time or written from the emergency department and that she should not continue to come to the emergency department seeking Ativan. She returned 2 days later, and was given Vistaril and Zofran for nausea, and then was transferred to [facility]. I had a discussion with the patient that she would receive an intramuscular injection of Ativan here. I will reassess her and see if she requires readmission to a psychiatric facility or at least evaluation by crisis. I did reiterate that she should not continue to come to the emergency department for benzodiazepines as they adjusted her medications during her last psychiatric hospitalization. Upon repeat examination at approximately 1320, she is resting, looking at her cellular telephone. I reiterated to her that the ER will not continue to administer Ativan for her panic attacks, and that a prescription would not be written today. She states she cannot follow-up with her psychiatrist until September. I did recommend that she follow-up with the counseling center. She states she has Vistaril at home. I did discuss with her that she should continue its use as needed. At this point in time, I feel she can be discharged to follow-up with psychiatry. Disposition is discharged home in stable condition. History & Record Review Discussion w/independent historian: Patient Additional record(s) reviewed:: Prior ED visit Discharge Plan Triage Chief Complaint: Anxiety ED Provider: Shahid Jaramillo Dx/Rx/DC Orders Clinical Impression: Anxiety, Panic attacks Instructions: Your Body's Response to Anxiety, ED Panic Attack Prescriptions: No Action citalopram 20 mg tablet 20 mg PO DAILY Hold Instructions: Pt has been DC'd Patient Comments: TAKE 1 TABLET BY MOUTH ONCE DAILY meclizine [meclizine] 25 mg tablet 25 mg PO Q8H PRN PRN (Reason: Dizziness) Qty: 20 0RF Primary Care Provider: Care Physician,No Primary Referrals: Counseling,Center [Group of Physicians] - As soon as possible Care Physician,No Primary [Primary Care Provider] - Disposition Disposition: Home, Self Care
[2023-08-29] MEDS: LORazepam 2 MG/ML Syringe 1 MG IM (11:09)
--- NOTE | 2023-08-29 13:33 | ED.RN ---
Pt voices understanding with discharge instructions, acknowledges need to follow up with the Counseling Center or to return for any thoughts of self harm.
== END 2023-08-29 13:33 | disposition home or self-care (01) ==
PROVIDERS: Emergency Provider Emergency Medicine; Visit Provider Emergency Medicine
DX: F41.0 Panic disorder [episodic paroxysmal anxiety] (principal); F31.9 Bipolar disorder, unspecified
CPT/HCPCS: 96372; 99282

== ENCOUNTER 2023-10-31 15:47 | Emergency (ER) | payer MEDICAID, SELFPAY ==
[2023-10-31 15:48] VITALS: BP 125/73; PULSE 85; RESP 17; TEMP 36.8; O2SAT 99; BMI 39.6
--- OUTSIDE RECORDS SUMMARY | 2023-10-31 16:16 | XMS RPT_ITS | CCD ---
Author Name Unknown Address [address] [place] [address] Organization [facility] Care Team Providers Care Rehabilitation Program Coordinator Name Role Phone SHIVANI LEUNG Unavailable Unavail able FREEMAN LYLES Unavailable Unavailable Unavailable Primary Care Provider Unavailabl e FREEMAN LYLES Primary Care Unavailable SHIVANI LEUNG Attending Unavail able Unavailable Primary Care Provider Unavailabl e KIRILL VALDEZ Consulting Unavailable RAFAL FREEMAN A Primary Care Unavailable GEHLOTALBERTENDER Attending Unavailable THELMA UPENDER Admitting Unavailable ROSAMARIA RIVERA CNP Referring Unavailable JIGNESHFERNANDO MCMILLAN Attending Unavailable JIGNESHFERNANDO MCMILLAN Admitting Unavailable JIGNESHFERNANDO Primary Care Unavailable ROSAMARIA RIVERA CNP Consulting Unavailable PROVIDER, UNKNOWN Consulting Unavailable PROVIDER, UNKNOWN Consulting Unavailable ROSAMARIA RIVERA CNP Referring Unavailable ROSAMARIA RIVERA CNP Consulting Unavailable ANDREY BARKER DO Primary Care Unavailable ANDREY BARKER DO Attending Unavailable ANDREY BARKER DO Admitting Unavailable PROVIDER, UNKNOWN Consulting Unavailable PROVIDER, UNKNOWN Consulting Unavailable ROSAMARIA RIVERA CNP Referring Unavailable ROSAMARIA RIVERA CNP Consulting Unavailable MARLEY OROZCO Admitting Unavailable MARLEY OROZCO Primary Care Unavailable MARLEY OROZCO Attending Unavailable PROVIDER, UNKNOWN Consulting Unavailable PROVIDER, UNKNOWN Consulting Unavailable ROSAMARIA RIVERA CNP Referring Unavailable ROSAMARIA RIVERA CNP Consulting Unavailable ALEJANDRO MENSAHOTHY Primary Care Unavailable JEAN MENSAH DO Attending Unavailable JEAN MENSAH DO Admitting Unavailable PROVIDER, UNKNOWN Consulting Unavailable PROVIDER, UNKNOWN Consulting Unavailable ROSAMARIA RIVERA CNP Referring Unavailable ROSAMARIA RIVERA CNP Consulting Unavailable JIGNESH, FERNANDO Luciana Admitting Unavailable JIGNESH FERNANDO E Primary Care Unavailable JIGNESH, FERNANDO Luciana Attending Unavailable PROVIDER, UNKNOWN Consulting Unavailable PROVIDER, UNKNOWN Consulting Unavailable NICOLE, ROSAMARIA REGIONAL CLIMATE CHANGE ANALYST Attending Unavailable ROSAMARIA RIVERA CNP Admitting Unavailable ROSAMARIA RIVERA CNP Primary Care Unavailable ROSAMARIA RIVERA CNP Consulting Unavailable PROVIDER, UNKNOWN Consulting Unavailable PROVIDER, UNKNOWN Consulting Unavailable MARLEY OROZCO Admitting Unavailable ROSAMARIA RIVERA CNP Referring Unavailable MARLEY OROZCO Primary Care Unavailable ROSAMARIA RIVERA CNP Consulting Unavailable MARLEY OROZCO Attending Unavailable PROVIDER, UNKNOWN Consulting Unavailable PROVIDER, UNKNOWN Consulting Unavailable ROSAMARIA RIVERA CNP Referring Unavailable FERNANDO EGAN Attending Unavailable FERNANDO EGAN Admitting Unavailable FERNANDO EGAN Primary Care Unavailable ROSAMARIA RIVERA CNP Consulting Unavailable PROVIDER, UNKNOWN Consulting Unavailable PROVIDER, UNKNOWN Consulting Unavailable Medications Current Medications Medication Drug Class(es) Dates Sig (Normalized) Sig (Original) metroNIDAZOLE 500 mg oral tablet (2 sources) Nitroimidazole Antimicrobial Start: 05-08-2023 End: 05-15-2023 take 1 tablet by mouth twice daily metroNIDAZOLE (FLAGYL) 500 mg tablet Take 1 tablet by mouth twice daily for 7 days. 14 tablet 0 05/08/2023 05/15/2023 Active Completed/Discontinued Medications Medication Drug Class(es) Dates Sig (Normalized) Sig (Original) citalopram 20 mg oral tablet (2 sources) Serotonin Reuptake Inhibitor Start: 03-07-2023 take 1 tablet by mouth once citalopram (CELEXA) 20 mg tablet Take 1 tablet by mouth every afternoon. 0 03/07/2023 Active Problems Active Problems Problem Classification Problem Date Documented Da te Episodic/Chronic Administrative/social admission (3 sources) Persons encountering health services in other specified circumstances; Translations: [Persons encountering health services in other specified circumstances] Onset: 08-31-2023 Episodic Malaise and fatigue (3 sources) Weakness; Translations: [Other fatigue] Onset: 08-28-2023 Episodic Mood disorders (4 sources) Bipolar disorder, unspecified; Translations: [Bipolar disorder, current episode mixed, severe, without psychotic features] Onset: 06-10-2023 Chronic Sexually transmitted infections (not HIV or hepatitis) (3 sources) Syphilis, unspecified; Translations: [Syphilis, unspecified] Onset: 08-30-2023 Episodic Past or Other Problems Problem Classification Problem Date Documented Da te Episodic/Chronic Nausea and vomiting (4 sources) Nausea with vomiting, unspecified; Translations: [Nausea with vomiting, unspecified] Onset: 10-06-2016 Episodic Viral infection (4 sources) Viral infection, unspecified; Translations: [Viral infection, unspecified] Onset: 10-06-2016 Episodic Results Test Name Value Interpretation Reference Range Facil ity Encounters Encounter Date Encounter Type Care Provider Facility Start: 10-18-2023 End: 10-18-2023 ambulatory ROSAMARIA STEPHENSON [facility] Start: 09-03-2023 End: 09-03-2023 Emergency department patient visit MARLEY OROZCO [facility] Start: 08-31-2023 End: 08-31-2023 Emergency department patient visit ROSAMARIA STEPHENSON [facility] Start: 08-30-2023 End: 08-31-2023 Emergency department patient visit ROSAMARIA STEPHENSON [facility] Start: 08-28-2023 End: 08-28-2023 Emergency department patient visit ROSAMARIA STEPHENSON [facility] Start: 06-26-2023 End: 06-26-2023 Emergency department patient visit ROSAMARIA STEPHENSON [facility] Start: 06-10-2023 End: 06-15-2023 Evaluation and management of inpatient [facility] Start: 05-26-2023 End: 05-26-2023 Emergency department patient visit ROSAMARIA STEPHENSON [facility] Start: 05-09-2023 Telephone encounter Dalila Handy APRN.CNP Work Phone: [facility] Procedures Date Procedure Procedure Detail Performing Clinician Start: 08-28-2023 Urinalysis ROSAMARIA FRENCH Plan of Treatment Date Care Activity Detail Author Start: 06-14-2023 Influenza vaccination INFLUENZA (#1) [facility] Start: 10-14-2022 DEPRESSION ASSESSMENT DEPRESSION ASS ESSMENT [facility] Start: 06-14-2022 Influenza vaccination INFLUENZA (#1) [facility] Start: 2017 PAP TESTING PAP TESTING [facility] Start: 2015 Urine microalbumin profile DTAP,TDAP ,TD (1 - Tdap) [facility] Start: 2014 HEPATITIS C SCREENING HEPATITIS C SC REENING [facility] Start: 2014 HIV SCREENING HIV SCREENING [facility] Start: 2010 PEDS TO ADULT TRANSI TION ANNUAL ASSESSMENT PEDS TO ADULT TRANSITION ANNUAL ASSESSMENT [facility] Start: 2008 Adult depression scr eening assessment DEPRESSION SCREENING [facility] Start: 2008 PEDS TO ADULT TRANSI TION INITIAL DISCUSSION PEDS TO ADULT TRANSITION INITIAL DISCUSSION [facility] Start: 2007 HPV VACCINE (1 - 2-d ose series) HPV VACCINE (1 - 2-dose series) [facility] Start: 2005 HPV VACCINE (1 - 2-d ose series) HPV VACCINE (1 - 2-dose series) [facility] Start: 01-06-1997 COVID-19 VACCINE (#1) COVID-19 VACCI NE (#1) [facility] Start: 1996 HEPATITIS B (1 of 3 - 3-dose series) HEPATITIS B (1 of 3 - 3-dose series) [facility] Payers Date Payer Category Payer Medicaid [place] [employer] [place] [employer] [id number] 2020-Present [phone] [address] [place] [address] Medicaid [id number] 2020 Unknown [id number] 2004 Unknown [id number] 2004 Unknown VALENTINE GRIJALVA BS FEP PPO [id number] 2004-Present [phone] [address] [place] [address] PPO [id number] 1996 Unknown [id number] 1996 Unknown [id number] 1996 Unknown [id number] 1996 Unknown [id number] 1996 Unknown [id number] 1996 Unknown [id number] 1996 Unknown [id number] 1996 Unknown [id number] 1996 Unknown [id number] 1996 Unknown [id number] Social History Date Type Detail Facility Start: 06-13-[address] [facility] Never smoked tobacco [facility] Start: 06-13-2022 Tobacco use and exposure Smoke less tobacco non-user [facility] Start: 1996 Sex Assigned At Not on file [facility] [place] Start: 05-07-2023 History of Social function [facility] Start: 05-07-2023 Tobacco use panel [facility] Note 05-10-2023 Telephone Encounter - Bebe Durham LPN - 05/10/2023 10:59 AM EDTTelephone Encounter - Bebe Durham LPN - 05/09/2023 2:00 PM EDTTelephone Encounter - Bebe Durham LPN - 05/09/2023 8:10 AM EDT Note Date & Type Note Facility 05-10-2023 Miscellaneous Notes Formattin g of this note might be different from the original. Phone call placed, no answer, mailbox reported as full. Bebe Durham LPN Phone call placed no answer, see prior phone note no message left. Bebe Durham LPN Phone call placed to x2 numbers listed on chart home number no longer in service, cell number no answer unable to leave a message reported as full. Letter mailed to patient's listed address (no results) to contact a nurse to review results. Bebe Durham LPN Urine culture came back negative. Chlamydia and gonorrhea are also negative. Yeast was also negative. Patient should continue treatment for the positive trichomonas and bacterial vaginosis. documented in this encounter [facility] Note 05-08-2023 Telephone Encounter - Maryellen Hdz LPN - 05/08/2023 4:36 PM EDTTelephone Encounter - Kelton Matthew MD - 05/08/2023 12:58 PM EDT Note Date & Type Note Facility 05-08-2023 Miscellaneous Notes Formattin g of this note might be different from the original. Patient notified of results, verbalizes understanding of instructions. Maryellen Hdz LPN Patient tested positive for bacterial vaginosis and trichomonas. Both of these can be treated with the same antibiotic. Rx sent to the pharmacy. Trichomonas is a sexually transmitted infection and can be contracted again so her partners may want evaluated for treatment. documented in this encounter [facility] Progress note 05-07-2023 Note Date & Type Note Facility 05-07-2023 Note HNO ID: [id number] Author: Dalila Handy APRN.SEEMA Service: ? Author Type: Nurse Practitioner Type: Progress Notes Filed: 05/07/2023 5:13 PM Note Text: Subjective Came in with complaints of nausea vomiting dizziness headache for about 4 to 5 days. Patient says she is a week late on her. Says her tubes are cut but she is concerned. Patient denies risk for STDs. The history is provided by the patient. No photo colorer was used. Headache Review of Systems Constitutional: Negative. Skin: Negative. Neurological: Positive for headaches. Objective Physical Exam Constitutional: Appearance: Normal appearance. Cardiovascular: Rate and Rhythm: Normal rate and regular rhythm. Heart sounds: Normal heart sounds. Pulmonary: Effort: Pulmonary effort is normal. Breath sounds: Normal breath sounds. Abdominal: General: Abdomen is flat. There is no distension. Tenderness: There is no abdominal tenderness. There is no guarding or rebound. Neurological: Mental Status: She is alert. PAST MEDICAL HISTORY Diagnosis Date NEGATIVE MEDICAL HISTORY PAST SURGICAL HISTORY Procedure Laterality Date LIGATE FALLOPIAN TUBE Bilateral ALLERGIES Patient has no known allergies. MEDICATIONS citalopram (CELEXA) 20 mg tablet Take 1 tablet by mouth every afternoon. No family history on file. Social History Tobacco Use Smoking status: Never Smokeless tobacco: Never ASSESSMENT/PLAN: 1. Late menses - ICD9: 626.8, ICD10: N92.6 (primary diagnosis) - HCG QUAL UR B/O - URINE CULTURE 2. Headache, unspecified headache type - ICD9: 784.0, ICD10: R51.9 - URINE CULTURE Was instructed that no treatment will be given today. If anything comes back positive patient will be treated at that time. STD panel was ordered. Patient swabbed herself. Dalila Handy APRN.[facility] Note 06-14-2022 Telephone Encounter - Damari Vaughn RN - 06/14/2022 8:04 AM EDTTelephone Encounter - Bebe Durham LPN - 06/14/2022 7:33 AM EDT Note Date & Type Note Facility 06-14-2022 Miscellaneous Notes Formattin g of this note might be different from the original. Patient called NOC: informed of Covid negative; Flu A/B negative. Advised COVID negative Continue treatment plan discussed at time of visit. Follow up with primary care doctor. Phone call placed brief message to contact a nurse. Bebe Durham LPN COVID negative Continue treatment plan discussed at time of visit. Follow up with primary care doctor. documented in this encounter [facility] Note 06-14-2022 Telephone Encounter - Damari Vaughn RN - 06/14/2022 8:00 AM EDT Note Date & Type Note Facility 06-14-2022 Miscellaneous Notes Formattin g of this note might be different from the original. Patient calling with return call/Message from office: Message from office reviewed - see Kenna Haider/express care encounter dated 06/14. Patient verbalized understanding of message given.. Patient denies any new or worsening symptoms of which a provider is not aware:Yes. Reason for call: Patient with missed call from express are to discuss lab results; patient calling back Outcome: Discussed negative Covid, Flu A/B Informed of note from Kenna Haider APRN: COVID negative Continue treatment plan discussed at time of visit. Follow up with primary care doctor. Advised: GO TO THE EMERGENCY ROOM OR CALL 911 IF: * You develop any new symptoms * Your condition worsens * You are concerned or anxious about your condition for any other reason. If you have any questions, you can call Nurse convalescent sitter back. documented in this encounter [facility] Summary Purpose Family History No Family History Records FoundNo Family History Records FoundNo Family History Records FoundNo Family History Records FoundNo Family History Records Found Advance Directives No Advanced Directives Records FoundNo Advanced Directives Records FoundNo Advanced Directives Records FoundNo Advanced Directives Records FoundNo Advanced Directives Records Found Additional Source Comments INFORMATION SOURCE (unrecogn ized section and content) DATE CREATED AUTHOR AUTHOR'S ORGANIZ ATION 01/27/2023 [facility] DATE CREATED AUTHOR AUTHOR'S ORGANIZ ATION 06/18/2023 [facility] DATE CREATED AUTHOR AUTHOR'S ORGANIZ ATION 10/22/2023 [facility] DATE CREATED AUTHOR AUTHOR'S ORGANIZ ATION 10/23/2023 [facility] Source Comments (unrecognize d section and content) In the event this informatio n is protected by the Federal Confidentiality of Alcohol and Drug Abuse Patient Records regulations: The Federal rules restrict any use of the information to criminally investigate or prosecute any alcohol or drug abuse patient.[facility] the event this information is protected by the Federal Confidentiality of Alcohol and Drug Abuse Patient Records regulations: The Federal rules restrict any use of the information to criminally investigate or prosecute any alcohol or drug abuse patient.[facility] the event this information is protected by the Federal Confidentiality of Alcohol and Drug Abuse Patient Records regulations: The Federal rules restrict any use of the information to criminally investigate or prosecute any alcohol or drug abuse patient.[facility] the event this information is protected by the Federal Confidentiality of Alcohol and Drug Abuse Patient Records regulations: The Federal rules restrict any use of the information to criminally investigate or prosecute any alcohol or drug abuse patient.[facility] Reason for Visit (unrecogniz ed section and content) Reason Comments Results Reason Comments Results BV, [employer] FOR RECORDS PERTAINING TO PATIENTS WHO ARE OR HAVE BEEN ENROLLED IN A CHEMICAL DEPENDENCY/SUBSTANCEABUSE PROGRAM, SOME INFORMATION MAY BE OMITTED. This clinical summary was aggregated from multiple sources. Caution should be exercised in using it in the provision of clinical care. This summary normalizes information from multiple sources, and as a consequence, information in this document may materially change the coding, format and clinical context of patient data. In addition, data may be omitted in some cases. CLINICAL DECISIONS SHOULD BE BASED ON THE PRIMARY CLINICAL RECORDS. [employer] provides no warranty or guarantee of the accuracy or completeness of information in this document.
--- NOTE | 2023-10-31 16:25 | EX.ED.DYSGE1 ---
HPI History of Present Illness Chief Complaint: Overdose Informant: patient Narrative Narrative: Patient presents after taking too much lorazepam. Patient has a history anxiety. She woke up and was having panic attack. She took 1 or 2 lorazepam tablets this morning. It just was not getting better so she took a handful at about noon. She states she was not trying to hurt herself. I even explained to the patient that taking a handful is a rather irrational action for an adult. And this makes me concerned. But she adamantly denies any thoughts of suicide. She states she has been suicidal in the past. She was admitted in the fall. But she is not suicidal now. She was just frustrated and was tired of having anxiety. She is on lorazepam at 0.5 mg tablets. She took these at noon and it is currently past 4 PM. She states she is not sleepy but she is a little bit drowsy. No other symptoms. She did not take any other pills. PFSH PFSH Medical History Alcohol use Anxiety Bruising Depression Easy bruising History of Clostridium difficile infection History of edema History of pre-eclampsia History of recent childbirth Leg cramps Migraine headache Non-smoker Home Medications meclizine 25 mg tablet 25 mg PO Q8H PRN PRN Dizziness #20 tabs 05/07/23 [Rx Last Taken Unknown] citalopram 20 mg tablet 20 mg PO DAILY 05/08/23 [History Last Taken Unknown] Allergy/AdvReac Type Severity Reaction Status Date / Time No Known Allergies Allergy Verified 10/31/23 15:51 Surgical History H/O tubal ligation Social History household members: children Smoking Status: Never smoker ROS ROS ED Constitutional Constitutional ED: Denies fever(s) Eyes Eyes: Denies change in vision ENT ENT ED: Denies rhinorrhea Cardiovascular Cardiovascular: Denies chest pain Respiratory/Chest Respiratory/Chest: Denies cough Gastrointestinal Gastrointestinal: Denies abdominal pain, diarrhea, melena or vomiting Genitourinary Genitourinary ED: Denies dysuria Musculoskeletal Musculoskeletal: Denies myalgias Integumentary Denies rash Neurologic Neurologic: Denies headache(s), paresthesias or weakness Psychiatric Psychiatric: Reports anxiety; Denies suicidal ideation or suicidal thoughts Hematologic/Lymphatic Hematologic/Lymphatic: Denies lymphadenopathy Allergic/Immunologic Allergic/Immunologic ED: Denies urticaria EXAM Physical Exam Narrative Exam Narrative: CONSTITUTIONAL: Patient is nontoxic in appearance. The patient looks comfortable. Work of breathing looks normal. HEENT: No notable trauma. Mucous membranes moist. EYES: No conjunctival injection. No proptosis. NECK:No JVD. No stridor. CARDIOVASCULAR: Regular rate. Regular rhythm. No notable murmur. No JVD. Peripheral pulses are normal x 4. RESPIRATORY: No respiratory distress. Breathing is unlabored. No wheezes. No rhonchi. No rales. No pain with a deep breath. No chest wall tenderness. GASTROINTESTINAL: Not distended. Bowel sounds are normal. No tenderness. No guarding. No rebound. No palpable mass. No bruit is heard. GENITOURINARY: No tenderness over the bladder. No CVA tenderness. MUSCULOSKELETAL: Atraumatic. No peripheral edema. NEUROLOGICAL: Patient is alert and appropriate. No focal deficit noted. She does not at all seems sleepy or lethargic. When I walked in the room she was already wide-awake. SKIN: No noted rashes. No diaphoresis. PSYCHIATRIC: Patient is calm. Mood is appropriate. Const Vital Signs: 10/31/23 15:48 Temperature 98.3 F Temperature Source Oral Pulse Rate 85 Respiratory Rate 17 Blood Pressure 125/73 H Blood Pressure Mean 90 Pulse Ox 99 Oxygen Delivery Method Room Air MDM MDM MDM Narrative Medical decision making narrative: I counted the pills in the patient's container. There are 17 out of 30 left so she has had a total of 13. She states she is taken 1 or 2 tablets 2 or 3 times since they were prescribed a little over a month ago. A total of 13 are missing. She had taken 1 or 2 this morning. She likely took somewhere between 11 and 5 tablets 4 hours ago. I looked up multiple sources. Peak absorption of lorazepam is 2 hours and then serum levels decrease. She took these 4 hours ago so she is on a decrease. Half-life is 12 hours. But since she is not sleepy at this time or having hypoxia or trouble breathing I think she is safe and does not need admission or further observation. Patient has been watched here. No further issues. Still denies suicidal thoughts. Discharge Plan Triage Chief Complaint: Overdose ED Provider: Listerman,Peter Dx/Rx/DC Orders Clinical Impression: History of anxiety, Accidental overdose Instructions: ED Accidental Ingestion ... Prescriptions: No Action citalopram 20 mg tablet 20 mg PO DAILY Hold Instructions: Pt has been DC'd Patient Comments: TAKE 1 TABLET BY MOUTH ONCE DAILY meclizine [meclizine] 25 mg tablet 25 mg PO Q8H PRN PRN (Reason: Dizziness) Qty: 20 0RF Primary Care Provider: Care Physician,No Primary Referrals: Care Physician,No Primary [Primary Care Provider] - Activity Restrictions/Additional Instructions: Follow-up with your prescribing physician as soon as possible. Disposition Disposition: Home, Self Care Capacity Legal Remote Ruby On Rails Developer Reflex Medical hold order details:: IF a medical hold is selected below, a suggested order for a MEDICAL HOLD will reflex upon signing the document. Next of kin: [place] law dictates a PRIORITY LIST for identifying legal decision-maker/legal next of kin in the following order (LNOK): 1st: The patient?s legal guardian, if any 2nd: The patient's spouse (if status is questionable, consult Risk Management) 3rd: The patient?s adult child(nima) (majority, if multiple children) 4th: The patient?s parents 5th: The patient?s adult siblings (majority, if multiple children siblings)
== END 2023-10-31 20:06 | disposition home or self-care (01) ==
PROVIDERS: Emergency Provider Emergency Medicine; Visit Provider Emergency Medicine
DX: T42.4X1A Poisoning by benzodiazepines, accidental (unintentional), initial encounter (principal); F41.9 Anxiety disorder, unspecified; F32.A Depression, unspecified; Z79.899 Other long term (current) drug therapy
CPT/HCPCS: 99282; J7030; A4216

== ENCOUNTER 2024-02-18 11:08 | Emergency (ER) | payer MEDICAID, SELFPAY ==
[2024-02-18 11:08] VITALS: BP 137/82; PULSE 81; RESP 14; TEMP 36.6; O2SAT 98; BMI 43.5
--- NOTE | 2024-02-18 11:31 | US_ITS ---
EXAM: US PELVIS TRANSVAGINAL CLINICAL INDICATION: pelvic pain TECHNIQUE: Endovaginal pelvic ultrasound was performed with grayscale and color Doppler imaging. Endovaginal imaging was used for better evaluation of the endometrium and adnexa. COMPARISON: No relevant prior studies available. FINDINGS: UTERUS/CERVIX: Retroflexed uterus measures 8.5 x 5.9 x 4.7 cm with endometrial thickness of 5 mm. RIGHT OVARY: Small peripheral follicles noted within both ovaries suggestive of polycystic ovaries. Blood flow is present in the right ovary. The right ovary measures 4.1 x 2.1 x 2.2 cm. LEFT OVARY: The left ovary measures 4.1 x 2.4 x 2.7 cm. FREE FLUID: Physiological amount of free fluid noted within the pelvis. US/Transvaginal Non- IMPRESSION: Retroflexed normal size uterus. Multiple bilateral small ovarian follicles raising the possibility of polycystic ovaries. Electronically Signed: Sammy Can MD at 12:43 EDT ,
--- NOTE | 2024-02-18 11:32 | EDS_ITS ---
HPI HPI - Female History of Present Illness Chief Complaint: Female C/O Informant: patient Pain Pain: Positive for Pelvic Pain Onset: Days Context: Gradual Onset Timing: Intermittent Quality: Positive for Cramping Current Severity: Mild Maximum Severity: Mild Bleeding Issue: Negative for Vaginal bleeding, Passing clots or Passing tissue Associated Symptoms Associated Symptoms: Positive for Frequency and Urgency P: 3 Ab: 0 Narrative Narrative: 28-year-old female no signet past medical history other than she had a prior STD and has had prior trichomonas. Recently saw an urgent care was told she trichomonas was placed on metronidazole twice a day for 10 days. Denies any vaginal bleeding or discharge. No dysuria but is having urinary frequency. Does not believe she is she has had a prior tubal ligation. No fever. No abdominal pain. Prior similar symptoms: Yes Recent Illness/Hospitalization: No PFSH PFSH Medical History Alcohol use Anxiety Bruising Depression Easy bruising History of Clostridium difficile infection History of edema History of pre-eclampsia History of recent childbirth Leg cramps Migraine headache Non-smoker Home Medications meclizine 25 mg tablet 25 mg PO Q8H PRN PRN Dizziness #20 tabs 05/07/23 [Rx Last Taken Unknown] citalopram 20 mg tablet 20 mg PO DAILY 05/08/23 [History Last Taken Unknown] sulfamethoxazole 800 mg-trimethoprim 160 mg tablet (Bactrim DS) 1 tab PO BID 5 days #10 tabs 02/18/24 [Rx Last Taken Unknown] Allergy/AdvReac Type Severity Reaction Status Date / Time No Known Allergies Allergy Verified 02/18/24 11:09 Surgical History H/O tubal ligation Social History household members: children Smoking Status: Never smoker ROS ROS ED ROS Narrative Pelvic pain. Urinary frequency. Review of Systems ROS Unobtainable: Denies due to encephalopathy Constitutional Constitutional ED: Denies chills or fever(s) Eyes Eyes: Denies blurry vision ENT ENT ED: Denies ear pain Cardiovascular Cardiovascular: Denies chest pain or palpitations Respiratory/Chest Respiratory/Chest: Denies cough or dyspnea Gastrointestinal Gastrointestinal: Denies abdominal pain, constipation, diarrhea, melena, nausea or vomiting Genitourinary Genitourinary ED: Reports urinary frequency; Denies dysuria or hematuria Musculoskeletal Musculoskeletal: Denies arthralgias or myalgias Integumentary Denies abscess or Abrasions Neurologic Neurologic: Denies headache(s) Psychiatric Psychiatric: Denies anxiety or depression Endocrine Endocrinology: Denies heat intolerance, polydipsia, polyphagia or polyuria Hematologic/Lymphatic Hematologic/Lymphatic: Denies easy bleeding, easy bruising or lymphadenopathy Allergic/Immunologic Allergic/Immunologic ED: Denies mouth swelling, tongue swelling or urticaria EXAM Physical Exam Narrative Exam Narrative: 28-year-old female no acute distress vital signs stable afebrile. HEENT exam unremarkable. Lungs clear to auscultation. Heart regular rhythm no murmur. Abdomen soft nondistended normal bowel sounds no peritoneal signs. Very minimal suprapubic tenderness in the midline only. Right and left lower quadrant unremarkable. Patient moving all 4 extremities. Calves nontender without edema or cords. Patient is awake alert with no focal motor deficits. Const Vital Signs: 02/18/24 11:08 02/18/24 13:08 Temperature 98 F Temperature Source Temporal Pulse Rate 81 78 Respiratory Rate 14 16 Blood Pressure 137/82 H 141/54 H Blood Pressure Mean 100 83 Pulse Ox 98 98 Oxygen Delivery Method Room Air Room Air Positive well nourished and well developed; Negative for cachectic, contractures or unkempt General Appearance ED: well developed and NAD; Negative for unkempt, cachectic, contractures or pallor Nutritional Appearance: Negative for cachectic HEENT Reports moist mucous membranes; Denies dry mucous membranes Negative for trauma or tenderness Mouth ED: No dry mucous membranes Mouth: No dry mucous membranes Eyes PERRL and EOMs intact bilaterally General Eye ED: Negative for pale conjunctiva, scleral icterus or other Neck no lymphadenopathy, supple and no JVD General: Negative for other Thyroid: Negative for tender Lymph Lymphatic: Negative for other Chest Wall inspection of chest normal and palpation of chest normal Chest: Negative for other Resp normal respiratory effort and clear to auscultation bilaterally Effort and Inspection: Negative for pain with movement Auscultation: Negative for rales, rhonchi, wheezes or diminished lung sounds Cardio regular rate, regular rhythm, S1 normal heart sound, no murmurs and no JVD GI normal to inspection, nondistended, normoactive bowel sounds, soft to palpation, non-tender, non-distended and no masses GI Narrative: Suprapubic tenderness only. Lower over the pelvis. Both the right and left lower quadrants are unremarkable. Auscultation: normoactive bowel sounds Palpation: tender; Negative for guarding, rigid, hepatomegaly, splenomegaly or mass Back/Spine no CVA tenderness General Back: Negative for CVA tenderness Cervical Spine: Negative for cervical spine tenderness Thoracic Spine / Upper Back: Negative for thoracic spinal tenderness Lumbar Spine / Lower Back: Negative for lumbar spinal tenderness Extremity normal to inspection and full ROM General Extremety ED: Negative for edema or tenderness General Extremity: Negative for edema Neuro oriented x3 and CN's II-XII intact bilaterally Sensorium / Orientation: alert, oriented to person, oriented to place and oriented to time; Negative for confused, lethargic or stuporous Motor Exam: strength 5/5 throughout; Negative for general weakness or strength abnormal Psych mental status grossly normal Appearance: Negative for unkempt Attitude: No agitated Speech: No other Mood & Affect: Negative for depressed, anxious or tearful Skin no rashes or lesions noted and no wounds General Skin Exam: Negative for jaundice or pallor Rashes: No rashes noted Trauma: Negative for other MDM MDM MDM Narrative Medical decision making narrative: 28-year-old female with urinary urgency and pelvic pain. Ultrasound being obtained with a UA and urine test. Pelvic exam will be obtained. Recently diagnosed with trichomonas and currently being treated with metronidazole. Repeat exam at 3:06 PM patient doing well. Abdomen benign. She and I discussed her test results. She was to hold off on the pelvic exam at this time. Treated for the UTI. If her pain is not getting better she will follow-up with her primary care provider in [place] a nurse practitioner by the last name of bilateral. Patient be started on Bactrim DS p.o. 1 twice daily for 5 days. 10 no refill. Outpatient follow-up. Lab Data Attestation: I reviewed the patient's lab results. Lab results narrative: UA today shows 10-25 white cells 2+ bacteria culture will be sent and she will be started on antibiotics. Urine test negative. Pelvic ultrasound shows a retroflexed normal size uterus. Ovarian follicles. Read by the radiologist. Labs: Laboratory Results - last 24 hr 02/18/24 12:00 Urine Color Yellow Urine Clarity Sl. Cloudy Urine pH 5.0 Ur Specific [place] 1.020 Urine Protein 15 H Urine Glucose (UA) Normal Urine Ketones 5 H Urine Occult Blood 10 H Urine Nitrite Negative Urine Bilirubin Negative Urine Urobilinogen Normal Ur Leukocyte Esterase 100 H Urine RBC 0-5 SEEN Urine WBC 10-25 SEEN Ur Squamous Epith Cells 0-5 SEEN Urine Bacteria 2+ Urine Mucus 2+ Urine Test Negative Radiography Diagnostic Testing: Clinical Impression(s) from Imaging Studies Transvaginal US 02/18/24 11:31 IMPRESSION: Retroflexed normal size uterus. Multiple bilateral small ovarian follicles raising the possibility of polycystic ovaries. Electronically Signed: Sammy Can MD at 12:43 EDT , Discharge Plan Triage Chief Complaint: Female C/O ED Provider: Anirudh Hayes Dx/Rx/DC Orders Clinical Impression: UTI (urinary tract infection), Pelvic pain Instructions: Urinary Tract Infections in Women Prescriptions: New sulfamethoxazole-trimethoprim [Bactrim DS] 800-160 mg tablet 1 tab PO BID 5 Days Qty: 10 0RF No Action citalopram 20 mg tablet 20 mg PO DAILY Hold Instructions: Pt has been DC'd Patient Comments: TAKE 1 TABLET BY MOUTH ONCE DAILY meclizine [meclizine] 25 mg tablet 25 mg PO Q8H PRN PRN (Reason: Dizziness) Qty: 20 0RF Primary Care Provider: Madelyn Murcia NP Referrals: Care Physician,No Primary [Non-Staff] - Madelyn Murcia NP, SEED CLEANING MACHINE OPERATOR-C [Primary Care Provider] - 1 Week if not improving Activity Restrictions/Additional Instructions: You have a urinary tract infection. Will start you on antibiotic Bactrim 1 pill twice a day for 5 days. A urine culture was sent. Tylenol and/or Motrin for pain. Plenty of fluids. Cranberry juice. Follow-up with your primary care provider if not improving you will need further evaluation and a pelvic exam. Disposition Disposition: Home, Self Care
[2024-02-18 12:09] LABS: Color, Urine Yellow (Yellow); Glucose, Dipstick Normal (Normal); Ketone-Dipstick 5 mg/dl (Negative); Leukocyte Esterase-Dipstick 100 /ul (Negative); Nitrite-Dipstick Negative (Negative); Occult Blood-Urine 10 /ul (Negative); Protein-Dipstick 15 mg/dl (Negative); Urine Bilirubin Dipstick Negative (Negative); Urine Clarity Sl. Cloudy (Clear); Urine Urobilinogen Normal (Normal)
[2024-02-18 12:18] LABS: Bacteria 2+ /hpf (None Seen); Internal QC Validated? YES +Cl - CLEAR BKGD; Mucous, Urine 2+ /hpf (<or=2+); Pregnancy, Urine Negative Negative; Red Blood Cells-Urine 0-5 SEEN /hpf (0-5); Squamous Epithelial Cells - UA 0-5 SEEN /hpf (5-10); White Blood Cells 10-25 SEEN /hpf (0-5)
[2024-02-18 12:19] LABS: Record Kit Lot#,Urine Preg HCG0000718089
[2024-02-18 13:08] VITALS: BP 141/54; PULSE 78; RESP 16; O2SAT 98
[2024-02-18 15:23] VITALS: BP 94/60; PULSE 75; RESP 16; TEMP 36.7; O2SAT 95
[2024-02-18] MEDS: Smz/Tmp Ds Tablet 1 TABLET PO (15:25)
== END 2024-02-18 15:29 | disposition home or self-care (01) ==
PROVIDERS: Emergency Provider Emergency Medicine; PCP Nurse Practitioner Family; Visit Provider Emergency Medicine
DX: N39.0 Urinary tract infection, site not specified (principal); R10.2 Pelvic and perineal pain; F32.A Depression, unspecified; Z79.899 Other long term (current) drug therapy; Z98.51 Tubal ligation status
CPT/HCPCS: 76830; 81001; 81025; 87086; 87088; 99282

== ENCOUNTER 2024-05-08 11:00 | Emergency (ER) | payer MEDICAID, SELFPAY ==
[2024-05-08 11:00] VITALS: BP 142/88; PULSE 103; RESP 14; TEMP 36.6; O2SAT 98; BMI 45.6
--- NOTE | 2024-05-08 11:01 | EKG12_ITS ---
Test Reason : Blood Pressure : / mmHG Vent. Rate : 086 BPM Atrial Rate : 086 BPM P-R Int : 152 ms QRS Dur : 072 ms QT Int : 370 ms P-R-T Axes : -02 039 020 degrees QTc Int : 442 ms Normal sinus rhythm with sinus arrhythmia Normal ECG Confirmed by KINGS MORALES, KAREN ([id number]), telegraph editor JOANIE MA ([id number]) on 05/12/2024 1:50:46 PM Referred By: Confirmed By:YOANNA KU MD
--- NOTE | 2024-05-08 11:03 | EX.ED.DYSGE1 ---
HPI History of Present Illness Chief Complaint: Suicidal Informant: patient and spouse/S.O. Narrative Narrative: 28-year-old female presenting to the emergency room with intentional suicidal overdose. Patient states that she was feeling very suicidal last night and around 0300 hrs. she took prescribed Ativan. Rough estimate is around #15 0.5 mg tablets. She states she also took Percocet but is unsure of how many pills but believes that is just a few. She denies any alcohol use last night. No cannabis use last night. She has ongoing stressors in her life that have persisted to make her feel this way. She went to sleep at some point and woke around 10:00. She feels drowsy slightly unsteady on her feet. She went to crisis appointment where she was brought here under pink slip with the INTERNAL INVESTIGATOR. Patient has a history of anxiety depression and bipolar disorder. [facility] Medical History History of recent childbirth History of Clostridium difficile infection Anxiety Depression Alcohol use Bruising Easy bruising Migraine headache Non-smoker History of edema Leg cramps History of pre-eclampsia Home Medications ?Medication ?Instructions ?Recorded ?Last Taken ?Type meclizine 25 mg tablet 25 mg PO Q8H PRN PRN Dizziness #20 05/07/23 Unknown Rx tabs citalopram 20 mg tablet 20 mg PO DAILY 05/08/23 Unknown History sulfamethoxazole 800 1 tab PO BID 5 days #10 tabs 02/18/24 Unknown Rx mg-trimethoprim 160 mg tablet (Bactrim DS) Allergy/AdvReac Type Severity Reaction Status Date / Time No Known Allergies Allergy Verified 05/08/24 11:01 Surgical History H/O tubal ligation Social History household members: children Smoking Status: Never smoker ROS ROS ED Constitutional Constitutional ED: Denies chills, fever(s) or weight loss Eyes Eyes: Denies change in vision or diplopia ENT ENT ED: Denies ear pain, rhinorrhea or sore throat Cardiovascular Cardiovascular: Denies chest pain, orthopnea, palpitations or racing heartbeat Respiratory/Chest Respiratory/Chest: Denies cough, dyspnea or orthopnea Gastrointestinal Gastrointestinal: Denies abdominal pain, diarrhea, nausea or vomiting Genitourinary Genitourinary ED: Denies dysuria, hematuria or urinary frequency Musculoskeletal Musculoskeletal: Denies arthralgias or myalgias Integumentary Denies abscess or rash Neurologic Neurologic: Denies headache(s) or weakness Psychiatric Psychiatric: Reports anxiety, depression, suicidal ideation and suicidal thoughts Endocrine Endocrinology: Denies polydipsia, polyphagia or polyuria Allergic/Immunologic Allergic/Immunologic ED: Denies mouth swelling, tongue swelling or urticaria EXAM Physical Exam Narrative Exam Narrative: Patient is able to ambulate down the hallway to the bathroom and carry her urine specimen back to the room without difficulty. Const Vital Signs: 05/08/24 11:00 05/08/24 12:00 Temperature 98 F Temperature Source Temporal Pulse Rate 103 H 100 Respiratory Rate 14 14 Blood Pressure 142/88 H 144/80 H Blood Pressure Mean 106 101 Pulse Ox 98 98 Oxygen Delivery Method Room Air Room Air Positive well nourished, well developed and obese General Appearance ED: well developed Nutritional Appearance: obese HEENT Reports normocephalic, head/scalp atraumatic and moist mucous membranes Eyes PERRL and EOMs intact bilaterally Neck no lymphadenopathy, supple and no JVD Resp normal respiratory effort and clear to auscultation bilaterally Cardio regular rate, regular rhythm and no murmurs GI normal to inspection, nondistended, normoactive bowel sounds and non-tender Palpation: soft Back/Spine no CVA tenderness and normal ROM Extremity normal to inspection General Extremety ED: Negative for edema General Extremity: Negative for edema Neuro oriented x3 and CN's II-XII intact bilaterally Sensorium / Orientation: alert Motor Exam: strength 5/5 throughout Psych cooperative Appearance: grossly normal Attitude: guarded Activity / Motor Behavior: psychomotor slowing Speech: minimal, slow and soft Mood & Affect: depressed; Negative for tearful Thought Content: suicidality Skin no rashes or lesions noted and no wounds MDM MDM MDM Narrative Medical decision making narrative: Differential diagnosis includes polysubstance drug overdose liver failure renal failure electrolyte disturbance depression anxiety cardiac dysrhythmias Basic blood work was obtained shows retinae 0.96 normal LFTs test is negative urinalysis no overt infection toxicology workup is negative. This includes alcohol acetaminophen and salicylate and benzodiazepines. Patient was observed in the department. I believe she is stable for crisis evaluation and psychiatric assessment. Will have crisis work on placement for her. Update 1600 hrs. patient has been accepted to [facility] under Dr. Andersen. History & Record Review Discussion w/independent historian: Patient, Significant other and Other (INTERNAL INVESTIGATOR/Crisis) Lab Data Attestation: I reviewed the patient's lab results. Labs: Laboratory Results - last 24 hr 05/08/24 05/08/24 11:10 11:20 WBC 5.5 RBC 4.95 Hgb 15.0 Hct 43.9 MCV 88.7 MCH 30.3 MCHC 34.2 RDW Std Deviation 38.3 RDW Coeff of Vickie 11.9 Plt Count 239 MPV 10.7 Immature Gran % (Auto) 0.400 Neut % (Auto) 62.7 Lymph % (Auto) 24.4 [place] % (Auto) 10.7 H Eos % (Auto) 1.3 Baso % (Auto) 0.5 Absolute Neuts (auto) 3.5 Absolute Lymphs (auto) 1.35 Nucleated RBC % 0 Sodium 138 Potassium 3.6 Chloride 107 Carbon Dioxide 24.0 Anion Gap 7 BUN 11 Creatinine 0.96 Estim Creat Clear Calc 104.75 Est GFR (MDRD) Af Amer 89 Est GFR (MDRD) Non-Af 74 BUN/Creatinine Ratio 11.5 Glucose 108 H Calcium 9.3 Total Bilirubin 0.50 Direct Bilirubin 0.12 AST 18 ALT 35 Alkaline Phosphatase 64 Total Protein 8.3 H Albumin 4.2 Globulin 4.1 Serum , Qual NEGATIVE Urine Color Yellow Urine Clarity Clear Urine pH 6.5 Ur Specific [place] 1.015 Urine Protein Negative Urine Glucose (UA) Normal Urine Ketones Negative Urine Occult Blood 10 H Urine Nitrite Negative Urine Bilirubin Negative Urine Urobilinogen Normal Ur Leukocyte Esterase Negative Urine RBC 0 SEEN Urine WBC 0 SEEN Ur Squamous Epith Cells 5-10 SEEN Urine Bacteria 1+ Urine Mucus 0 SEEN Salicylates < 1.7 L Urine Opiates Screen NEGATIVE Urine Methadone Screen NEGATIVE Acetaminophen < 2.0 L Ur Barbiturates Screen NEGATIVE Ur Phencyclidine Scrn NEGATIVE Ur Amphetamines Screen NEGATIVE MDMA (Ecstasy) Screen NEGATIVE U Benzodiazepines Scrn NEGATIVE Urine Cocaine Screen NEGATIVE U Cannabinoids Screen NEGATIVE Ur Drug Screen Comment Ethyl Alcohol < 3.0 EKG Initial EKG: Attestation: I personally reviewed and interpreted this EKG as follows: Comments: Normal sinus rhythm ventricular rate of 86 bpm Management Discussion w/another healthcare provider: Behavioral health Discharge Plan Triage Chief Complaint: Suicidal ED Provider: Dorian Luna Dx/Rx/DC Orders Clinical Impression: Drug overdose, intentional, Suicide attempt, Bipolar disorder Prescriptions: No Action citalopram 20 mg tablet 20 mg PO DAILY Patient Comments: TAKE 1 TABLET BY MOUTH ONCE DAILY meclizine [meclizine] 25 mg tablet 25 mg PO Q8H PRN PRN (Reason: Dizziness) Qty: 20 0RF sulfamethoxazole-trimethoprim [Bactrim DS] 800-160 mg tablet 1 tab PO BID 5 Days Qty: 10 0RF Primary Care Provider: Madelyn Murcia NP Referrals: Madelyn Murcia NP, DRY CLEANING ATTENDANT-C [Primary Care Provider] - Print Language: Yi Disposition Disposition: Psychiatric Hospital or Unit Discharge Location: [facility]
[2024-05-08 11:43] LABS: Absolute Lymphocyte Count 1.35 X10^3/uL (0.83-4.51); Absolute Neutrophil Count 3.5 X10^3/uL (2.0-7.7); Basophil# 0.03 X10^3/uL; Basophil% 0.5 % (0-1); Eosinophil# 0.07 X10^3/uL; Eosinophils% 1.3 % (0-5); Hematocrit 43.9 % (37-47); Lymphocyte # 1.35 X10^3/ul (0.83-4.51); Lymphocyte % 24.4 % (19-41); Mean Corp Hgb Conc 34.2 g/dL (32-36); Mean Corpuscular Hgb 30.3 pg (27.0-32.0); Mean Corpuscular Volume 88.7 fL (81-99); Mean Platelet Vol. 10.7 fl (6.2-12.0); Monocyte# 0.59 X10^3/uL; Monocyte% 10.7 % (0-10); NRBC Flagged by Analyzer 0 % (0-5); Neutrophil # 3.47 X10^3/uL (2.7-7.7); Neutrophil % 62.7 % (47-70); Platelet Count 239 K/mm3 (150-450); RBC Distribution Width CV 11.9 % (11.6-14.6); RBC Distribution Width SD 38.3 fl (35.1-43.9); Red Blood Count 4.95 M/mm3 (4.2-5.4); White Blood Count 5.5 K/mm3 (4.4-11.0)
[2024-05-08 11:46] LABS: Amphetamine Urine VISTA NEGATIVE (<1000 ng/mL); Barbiturate Urine VISTA NEGATIVE (< 200 ng/mL); Benzodiazepine Urine VISTA NEGATIVE (< 200 ng/mL); Cocaine Urine VISTA NEGATIVE (< 300 ng/mL); Ecstacy Urine VISTA NEGATIVE (< 500 ng/mL); Methadone Urine VISTA NEGATIVE (< 300 ng/mL); PCP Urine VISTA NEGATIVE (< 25 ng/mL); THC Urine VISTA NEGATIVE (< 50 ng/mL); Vista UDS pH Range 5
[2024-05-08 11:57] LABS: Internal QC Validated? YES +Cl - CLEAR BKGD; Pregnancy, Serum, hCG Quali. NEGATIVE Negative; Record Kit Lot#, Serum Preg. 772476
[2024-05-08 12:00] VITALS: BP 144/80; PULSE 100; RESP 14; O2SAT 98
[2024-05-08 12:06] LABS: AST(SGOT) 18 U/L (15-37); Alanine Aminotransfer ALT/SGPT 35 U/L (13-56); Albumin, Serum 4.2 g/dL (3.2-5.0); Alkaline Phosphatase 64 U/L (45-117); Anion Gap 7 (5-15); BUN 11 mg/dL (7-18); BUN/Creat Ratio 11.5 RATIO (10-20); Bilirubin, Direct 0.12 mg/dL (0.00-0.30); Calcium,Total 9.3 mg/dL (8.5-10.1); Chloride 107 mmol/L (98-107); Creatinine, Serum 0.96 mg/dL (0.55-1.02); EST Glomerular Filtration Rate 74 mL/min (>60); Est Glom Filt Rate - Afr Amer 89 mL/min (>60); Estimated Creatinine Clearance 104.75 ml/min; Globulin 4.1 g/dL (2.2-4.2); Glucose 108 mg/dL (74-106); Potassium 3.6 mmol/L (3.5-5.1); Protein, Total 8.3 g/dL (6.4-8.2); Sodium Level 138 mmol/L (136-145)
[2024-05-08 12:16] LABS: Mucous, Urine 0 SEEN /hpf (<or=2+); Red Blood Cells-Urine 0 SEEN /hpf (0-5); White Blood Cells 0 SEEN /hpf (0-5)
--- NOTE | 2024-05-08 12:27 | NURSING ---
THIS NURSE COVERS FOR LUNCH
[2024-05-08 12:30] LABS: Color, Urine Yellow (Yellow); Glucose, Dipstick Normal (Normal); Ketone-Dipstick Negative (Negative); Leukocyte Esterase-Dipstick Negative /ul (Negative); Nitrite-Dipstick Negative (Negative); Occult Blood-Urine 10 /ul (Negative); Protein-Dipstick Negative (Negative); Specific Gravity, Urine 1.015 (1.002-1.030); Urine Bilirubin Dipstick Negative (Negative); Urine Clarity Clear (Clear); Urine Urobilinogen Normal (Normal); Urine pH 6.5 (5.0 - 8.0)
[2024-05-08 12:43] LABS: Acetaminophen (Tylenol) Level < 2.0 ug/mL (10.0-30.0); Alcohol, Blood (Medical)-Serum < 3.0 mg/dL; Salicylate < 1.7 mg/dL (2.8-20.0)
[2024-05-08 12:51] LABS: Bacteria 1+ /hpf (None Seen); Squamous Epithelial Cells - UA 5-10 SEEN /hpf (5-10)
[2024-05-08 17:51] VITALS: PULSE 76; RESP 18; TEMP 36.6; O2SAT 96
[2024-05-08 19:55] VITALS: BP 119/87; PULSE 107; RESP 19; TEMP 36.7; O2SAT 99
== END 2024-05-08 19:57 ==
PROVIDERS: Emergency Provider Emergency Medicine; PCP Nurse Practitioner Family; Visit Provider Emergency Medicine
DX: T42.4X2A Poisoning by benzodiazepines, intentional self-harm, initial encounter (principal); F31.9 Bipolar disorder, unspecified
CPT/HCPCS: 80048; 80076; 80307; 80329; 81001; 82077; 84703; 85025; 93005; 99284; G0480